=== PATIENT | female | born 1985 | race Caucasian/White ===

== ENCOUNTER → 2020-07-02 16:47 | Outpatient (BNVA) | payer MEDICAID, SELFPAY | PROVIDERS: Family Provider Nurse Practitioner Family; Visit Provider Obstetrics & Gynecology | DX: N39.41 Urge incontinence (principal); Z12.4 Encounter for screening for malignant neoplasm of cervix | CPT/HCPCS: 81000; 88175 ==

== ENCOUNTER → 2020-07-16 11:49 | Outpatient (BNVA) | payer MEDICAID, SELFPAY | PROVIDERS: Family Provider Nurse Practitioner Family; Visit Provider Obstetrics & Gynecology | DX: N39.41 Urge incontinence (principal) | CPT/HCPCS: 81000 ==

== ENCOUNTER → 2020-08-02 14:10 | Outpatient (BNVA) | payer MEDICAID, SELFPAY | PROVIDERS: Family Provider Nurse Practitioner Family; Visit Provider Obstetrics & Gynecology | DX: Z01.812 Encounter for preprocedural laboratory examination (principal); R87.611 Atypical squamous cells cannot exclude high grade squamous intraepithelial lesion on cytologic smear of cervix (ASC-H); N39.3 Stress incontinence (female) (male) | CPT/HCPCS: 81025; 88305 ==

== ENCOUNTER → 2020-08-30 10:01 | Outpatient (BNVA) | payer OTHER, MEDICAID, SELFPAY | PROVIDERS: PCP Nurse Practitioner Family; Visit Provider Obstetrics & Gynecology | DX: Z01.818 Encounter for other preprocedural examination (principal) | CPT/HCPCS: 87635 ==

== ENCOUNTER 2020-09-05 08:38 | Observation (INO) | payer MEDICAID, SELFPAY ==
[2020-09-03 09:51] VITALS: BMI 36.8
[2020-09-03 10:13] LABS: Basophils # 0.1 10^3/uL (0.0-0.1); Basophils % 0.6 %; Eosinophils # 0.4 10^3/uL (0.0-0.8); Eosinophils % 4.6 %; Hematocrit 41.4 % (37.0-47.0); Hemoglobin 13.8 g/dL (11.5-15.3); Mean Corpuscular HGB Conc 33.3 g/dL (30.0-36.0); Mean Corpuscular Hemoglobin 28.6 pg (28.0-34.0); Mean Corpuscular Volume 85.9 fL (81-99); Mean Platelet Volume 8.8 fL (7.4-10.4); Monocytes # 0.5 10^3/uL (0.2-0.9); Monocytes % 5.9 %; Neutrophils # 5.38 10^3/uL (1.8-7.7); Neutrophils % 64.5 %; Nucleated Red Blood Cells % 0 %; Platelet Count 292 10^3/cmm (130-400); Red Blood Count 4.82 10^6/uL (4.1-5.3); Red Cell Distribution Width 12.9 % (12.1-15.1); White Blood Count 8.3 10^3/uL (4.0-10.0)
[2020-09-03 10:15] LABS: OR HCG Qualitative Urine Negative (Negative)
--- NOTE | 2020-09-03 10:25 | P.ANESASSM_ITS ---
Pre-Anesthetic Assessment Pre-Anesthetic Assessment: Height/Weight: Height 1.7 m Weight 106.594 kg Preop Diagnosis: Urinary stress incotinence Proposed Procedure: Operation Date: 09/05/20 09:15 Proposed Procedures p Single incision urethral sling 76983 N39.3(Not Applicable) - Ronny Brown MD Was Beta Cami taken within 24 hours: N/A Social: Social History: Tobacco and No alcohol Comment: Smokes sky Exam: Pre-Anes Outpt Exam: alert, oriented x 3, clear to auscultation bilaterally and regular rate & rhythm Airway: Submandibular: WNL Cervical ROM: WNL MP: 2 Dentition: Full Pulmonary: Pulmonary: None reported CV/HEM: CV/HEM: None reported : Comments: Stress incont Hepatic: Hepatic: None reported GI: GI: None reported Metabolic: Metabolic: Morbid obesity Musc/skel: Musc/skel: None reported Neuropsych: Neuropsych: Anxiety and Depression Anesthetic Plan: ASA status: 3 Anesthesia: General Risk of > 500 ml blood loss (7ml/kg in children): No PFSH Anesthesia PFSH: Medical History ASCUS with positive high risk HPV cervical Well woman exam with routine gynecological exam Surgical History S/P cholecystectomy 2018, hernia repair done at the same time of gallbladder removal Family History Grandmother Thyroid condition paternal Denies family history of Colon cancer Ovarian cancer Diabetes Clotting disorder Heart disease Hyperlipidemia Breast cancer Anesthesia complication Bleeding disorder Hypertension Uterine cancer Stroke Social History Smoking and tobacco status: former smoker Quit status (tobacco): has quit using tobacco Year quit tobacco: 07/03/2018 Alcohol intake: current Alcohol intake frequency: holidays/special occasions only Alcohol type: beer Female Reproductive History: Date of last menstrual period: 08/24/20 Data Anesthesia CBC & Chem 7: 09/03/20 09:57 09/03/20 09:57 Other Labs: Laboratory Results - last 48 hr 09/03/20 09/03/20 09:57 10:10 WBC 8.3 RBC 4.82 Hgb 13.8 Hct 41.4 MCV 85.9 MCH 28.6 MCHC 33.3 RDW 12.9 Plt Count 292 MPV 8.8 Neut % (Auto) 64.5 Lymph % (Auto) 24.0 [place] % (Auto) 5.9 Eos % (Auto) 4.6 Baso % (Auto) 0.6 Neut # (Auto) 5.38 Lymph # (Auto) 2.0 [place] # (Auto) 0.5 Eos # (Auto) 0.4 Baso # (Auto) 0.1 Nucleated RBC % (auto) 0 Nucleated RBCs # 0.0 Urine HCG, Qual Negative Cardiac Studies: No Data to Display
[2020-09-03 10:35] LABS: Alanine Aminotransferase 16 U/L (0-33); Albumin Level 4.7 g/dL (3.5-5.2); Alkaline Phosphatase 88 IU/L (35-105); Anion Gap 14.2 (5-19); Aspartate Amino Transferase 13 U/L (0-32); Blood Urea Nitrogen 12 mg/dL (6-20); Calcium 9.5 mg/dL (8.5-10.5); Carbon Dioxide 26 mmol/L (22-29); Chloride 100 mmol/L (98-107); Globulin 2.7 g/dL (1.3-4.6); Glomerular Filtration Rate 115.1 mL/min (90-130); Glucose 101 mg/dL (65-115); Osmolality Calculated 282 mOsm/kg (285-295); Potassium 4.2 mmol/L (3.5-5.1); Sodium 136 mmol/L (136-145); Total Bilirubin 0.2 mg/dL (0.15-1.2); Total Protein 7.4 g/dL (6.6-8.7)
[2020-09-05] VITALS (18 sets, daily range): BP systolic 108–143; BP diastolic 64–93; PULSE 62–88; RESP 15–21; TEMP 36.4–37.1; O2SAT 92–100
--- NOTE | 2020-09-05 06:23 | P.ANESUD_ITS ---
Pre-Anesthetic Update Pre-Anesthetic Assessment: Date of Surgery/Procedure: 09/05/20 Preop Roma gnosis: Urinary stress incotinence Proposed Procedure: Operation Date: 09/05/20 07:00 Proposed Procedures p Sling(Not Applicable) - Ronny Brown MD Any changes to Pre-Anesthetic Assessment?: No Changes from Pre-Anesthetic Assessment: NPO MN Last Intake: Intake Last Liquid Date 09/04/20 Last Liquid Time 23:00 Last Solid Date 09/04/20 Last Solid Time 23:00 Labs Last 48hrs: Laboratory Results - last 48 hr 09/03/20 09/03/20 09/03/20 09:57 09:57 09:57 WBC 8.3 RBC 4.82 Hgb 13.8 Hct 41.4 MCV 85.9 MCH 28.6 MCHC 33.3 RDW 12.9 Plt Count 292 MPV 8.8 Neut % (Auto) 64.5 Lymph % (Auto) 24.0 [place] % (Auto) 5.9 Eos % (Auto) 4.6 Baso % (Auto) 0.6 Neut # (Auto) 5.38 Lymph # (Auto) 2.0 [place] # (Auto) 0.5 Eos # (Auto) 0.4 Baso # (Auto) 0.1 Nucleated RBC % (a uto) 0 Nucleated RBCs # 0.0 Sodium 136 Potassium 4.2 Chloride 100 Carbon Dioxide 26 Anion Gap 14.2 BUN 12 Creatinine 0.6 GFR Calculation 115.1 Glucose 101 Calculated Osmolal ity 282 L Calcium 9.5 Total Bilirubin 0.2 AST 13 ALT 16 Alkaline Phosphata se 88 Total Protein 7.4 Albumin 4.7 Globulin 2.7 Urine HCG, Qual Blood Type O Positive Rho(D) Type Positive Antibody Screen Negative 09/03/20 10:10 WBC RBC Hgb Hct MCV MCH MCHC RDW Plt Count MPV Neut % (Auto) Lymph % (Auto) [place] % (Auto) Eos % (Auto) Baso % (Auto) Neut # (Auto) Lymph # (Auto) [place] # (Auto) Eos # (Auto) Baso # (Auto) Nucleated RBC % (a uto) Nucleated RBCs # Sodium Potassium Chloride Carbon Dioxide Anion Gap BUN Creatinine GFR Calculation Glucose Calculated Osmolal ity Calcium Total Bilirubin AST ALT Alkaline Phosphata se Total Protein Albumin Globulin Urine HCG, Qual Negative Blood Type Rho(D) Type Antibody Screen Vitals: Temperature 97.9 F 09/05/20 06:04 Temperature Source Temporal Artery S can 09/05/20 06:04 Pulse Rate 76 09/05/20 06:04 Respiratory Rate 16 09/05/20 06:04 Blood Pressure 131/76 09/05/20 06:04 Blood Pressure Rissa n 94 09/05/20 06:04 Pulse Oximetry 97 09/05/20 06:04 Oxygen Delivery Me thod 09/05/20 06:04 Exam: Pre-Anes Outpt Exam: alert, oriented x 3, clear to auscultation bilaterally and regular rate & rhythm Cardiac Studies: No Data to Display
[2020-09-05] MEDS: sodium chloride 0.9% 1,000 ML 30 ML IV (06:28)
--- NOTE | 2020-09-05 06:39 | W.PM.OPSUD ---
Surgery/Procedure H&P Update DATE OF PROCEDURE: September 05, 2020 DATE H&P PERFORMED: 09/03/20 H&P UPDATE INFORMATION: I have reviewed H&P completed within last 30 days, I have examined patient prior to procedure and No changes to prior documentation PREOP DIAGNOSIS: Urinary stress incotinence PLANNED PROCEDURE: Operation Date: 09/05/20 07:00 Proposed Procedures p Sling(Not Applicable) - Ronny Brown MD
[2020-09-05] MEDS: vancomycin 1,000 MG in sodium chloride 0.9% 250 ML 250 MG IV (06:46)
--- NOTE | 2020-09-05 07:50 | PM.OP ---
Operative Report Date of procedure: September 05, 2020 Pre-op Diagnosis: Urinary stress incotinence Post-op diagnosis: same Post-op Findings: Urethral hypermobility Procedure Done: Single incision mid urethral sling Implants: Coloplast sling Pathology: none sent Surgeon: Ronny Brown MD Anesthesia: General Estimated blood loss (mL): 10 IV fluids (mL): 500 Urine output (mL): 100 Complications: None Findings: Urethral hypermobility Condition: stable Brief History: 35-year-old female with urinary stress incontinence Procedure: After obtaining informed consent, the patient was taken to the operating room and placed in the supine position, given general anesthesia, and prepped and draped in sterile fashion. The abdomen, vulva and vagina were prepped and draped in a sterile manner. A time out procedure was performed. The anterior vaginal mucosa beneath the midurethra was infiltrated with 0.5% Marcaine with epinephrine. A vertical midline incision was made beneath the midurethra, nearly 1.5 cm length. Careful submucosal dissection was performed bilaterally up to the interior portion of the inferior pubic ramus. The insertion of adductor longus tendon on the patient?s pubic ramus was identified as reference land cherelle. Palpated the notch along the internal edge of ischiopubic ramus where the adductor longus tendon and the inferior pubic ramus meet. The needle of the SIS inserted aiming at the location of this notch. One of the integrated self-fixating tips place onto the needle by sliding it over the end of the needle. The needle/sling assembly was inserted toward the location of identified reference notch making sure that the flat of the handle is perpendicular to the desired path. The needle was tracked along the posterior surface of the ischiopubic ramus until the midline cherelle on the mesh is approximately at the midline position under the urethra. The needle was removed and the same was repeated on the contralateral side until the appropriate sling tension under the urethra was achieved ensuring that the mesh lays flat. The needle was removed and vaginal incision was closed in a running interlocking fashion with 2-0 Vicryl. Then the Guillermo catheter was removed and cystoscope was inserted. The bladder was filled with sterile water. Complete evaluation of the bladder mucosa was performed noting no lacerations, dimpling, tears, bleeding of the mucosa or muscular layers. Both ureteral orifices were identified. Prompt excretion of urine from both ureteral orifices was noted. Cystoscope was withdrawn. Excellent hemostasis was obtained. Sponge, lap, needle, and instrument counts were correct times three. The patient was taken to the recovery room, awake and in stable condition.
--- NOTE | 2020-09-05 08:14 | SUR.PHASEI ---
pt awake alert , deines pain and nausea, taking ice chips without difficulty, vss abd soft. waiting for bed assignment.
[2020-09-05] MEDS: morphine 4 mg/mL SDV 1 mL 2 MG IVP (08:22)
--- NOTE | 2020-09-05 08:29 | SUR.PHASEI ---
0822 PT COMPLAINS OF URGENCY AND PAIN OF 5 TO LOWER ABD PT REMINDED OF LOPEZ CATH , SEE PAIN MED GIVEN PER PT REQUEST.
--- NOTE | 2020-09-05 08:40 | ANE.PACU2 ---
Inpatient post-anesthesia follow up: Airway intact: Yes Vital signs: Temperature 98.7 F Pulse Rate 71 Respiratory Rate 20 Blood Pressure 116/71 Pulse Oximetry 93 Oxygen Delivery Me thod Room Air Oxygen Flow Rate 8 Fraction of Inspir ed Oxygen Hydration adequate: Yes Nausea and vomiting: No Pain level: 1 Mental status: Baseline
[2020-09-05] MEDS: ketorolac 30 mg/mL INJ IVP ×2 (09:45→16:18)
[2020-09-05] MEDS: dextrose 5%-lactated ringers 1,000 ML 125 ML IV (09:45)
[2020-09-05] MEDS: docusate sodium 100 mg Capsule PO ×2 (09:45→19:25)
[2020-09-05] MEDS: fluticasone nasal spray 16gm Btl 2 SPRAY INTRANASAL ×2 (10:44→19:26)
[2020-09-05] MEDS: HYDROcodone-acetaminophen 5-325 mg Tablet PO ×2 (10:51→21:52)
[2020-09-05] MEDS: ondansetron 2 mg/ML SDV 2 mL 4 MG IVP (16:18)
[2020-09-05] MEDS: ibuprofen 800 mg tablet PO (20:06)
[2020-09-05] MEDS: TRAZODONE 50 MG TAB 1 EACH PO (20:07)
[2020-09-05] MEDS: OLANZAPINE 5 MG 1 EACH PO (20:07)
[2020-09-05] MEDS: acetaminophen 325 mg Tablet 650 MG PO (23:08)
[2020-09-06 05:15] VITALS: BP 108/71; PULSE 70; RESP 15; TEMP 36.5; O2SAT 97
[2020-09-06 05:31] LABS: Hematocrit 37.2 % (37.0-47.0); Mean Corpuscular HGB Conc 32.3 g/dL (30.0-36.0); Mean Corpuscular Hemoglobin 28.5 pg (28.0-34.0); Mean Corpuscular Volume 88.4 fL (81-99); Mean Platelet Volume 8.6 fL (7.4-10.4); Platelet Count 273 10^3/cmm (130-400); Red Blood Count 4.21 10^6/uL (4.1-5.3); Red Cell Distribution Width 12.8 % (12.1-15.1)
[2020-09-06] MEDS: fluticasone nasal spray 16gm Btl 2 SPRAY INTRANASAL (08:40)
[2020-09-06] MEDS: ibuprofen 800 mg tablet PO (08:40)
[2020-09-06] MEDS: docusate sodium 100 mg Capsule PO (08:40)
--- NOTE | 2020-09-06 09:16 | PM.OBGYDC ---
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 Try conservative management without resolution. Admitted for single incision mid urethral sling. The procedure was performed without complications.. Overnight observation uneventful. PVR within normal limits. She is afebrile and hemodynamically stable. Tolerating diet well. Ambulating without difficulty. Physical Exam Narrative: EXAM NARRATIVE: GA: Alert and oriented ?3. HEENT: WNL. Heart: Regular rate and rhythm. Lungs: Clear to auscultation bilaterally. Abdomen: Bowel sounds present, nontender CLINICAL EDUCATOR: No bleeding. PVR: 15ml Extremities: No edema, no cyanosis, no calves pain. Urinary Catheter Management^: Giullermo: Cath Placed During This Visit: yes Urinary Catheter Date of Insertion: 09/05/20 Urinary Catheter Time of Insertion: 07:35 Discharge Data Data Completed and Pending: Labs from last 24 hours 09/06/20 05:15 WBC 15.0 H RBC 4.21 Hgb 12.0 Hct 37.2 MCV 88.4 MCH 28.5 MCHC 32.3 RDW 12.8 Plt Count 273 MPV 8.6 Vitals: Last Vital Signs Temp 97.7 F 09/06/20 05:15 Pulse 70 09/06/20 05:15 Resp 15 09/06/20 05:15 BP 108/71 09/06/20 05:15 Pulse Ox 97 09/06/20 05:15 Discharge Plan Discharge Patient Disposition: Home Condition: Stable Prescriptions: New ibuprofen 800 mg tablet 800 mg PO TID PRN (Reason: pain) Qty: 60 RF: 0 Continued ketoconazole 1 % shampoo 1 applic topical Q3D RF: 0 trazodone 50 mg tablet 50 mg PO DAILY RF: 0 olanzapine 5 mg tablet 5 mg PO DAILY RF: 0 fluticasone propionate [Flonase Allergy Relief] 50 mcg/actuation spray,suspension 2 spray intranasal BID RF: 0 Mirena 20 mcg/24 hours (6 yrs) 52 mg intrauterine device 1 device intrauterine ONCE RF: 0 Discharge Orders: Discharge Order (Routine); Ordered 09/06/20 Ordered By: Ronny Brown Referrals: Ronny Brown MD [Physician] - 2 weeks Discharge Diet: Regular Discharge Activity: Increase activity as tolerated Patient Instructions: Bladder Sling Procedures (DC) Activity Restrictions/Additional Instructions: 1. Please call [facility] on next working day to make your post-operative appointment in 2 weeks. 2. Please stay home until you come back to the clinic on first post-operative check up. 3. Please follow instructions on your medications CAREFULLY. 4. If you have abdominal incision, do not cover it unless dressing is necessary because of drainage. OK to shower, but avoid bath. Leave steri-strips until they fall off. If they are still on one week after surgery, you may remove them. 5. If you had vaginal surgery, your doctor may instruct you to take SITZ bath. 6. Yellow, blood tinged odorous vaginal discharge is usually normal after hysterectomy or vaginal surgeries. 7. No sexual intercourse, tampons, or douches until you are completely released from the post-operative care. 8. Avoid constipation by eating right and maybe using some Metamucil or Milk of Magnesia. 9. All prescription refills are given during the working hours. Please do no wait till it runs out. Call the clinic at [phone] before your medication runs out. The clinic will get in touch with your doctor to prescribe medications if necessary. 10. Please remain within 40 mile radius from our hospital because emergencies do happen now and then during the post-operative period. 11. If you have stairs at home, take one step at a time slowly and minimize the number of trips. It helps to stay in one floor for the next few days. No lifting except what you can lift by one hand until you are released from the post-operative care. 12. Driving is discouraged until you are well healed. It may be 3-4 weeks before you feel strong enough to drive. You should be able to turn and look through the rear window without pain and you should be able to push the brake pedal very hard without pain before you drive. No fast rules, but SAFETY should be your primary concern. DO NOT drive if you are on sedating medications such as narcotics. 13. Call the clinic (during working hours) to make urgent appointment or go to the Emergency room, if any of the following occurs: i. Vaginal bleeding becomes heavy, more than a period. ii. Incision becomes red and sore, or drains pus. iii. Your temperature is over 100.4 or you have chill. iv. IV site becomes red and swollen (a little ``knot?? is usually OK) v. Persistent nausea and vomiting vi. Persistent constipation or diarrhea vii. Rash or allergic reaction to medications. 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
[2020-09-06 10:14] VITALS: BP 106/71; PULSE 100; RESP 16; TEMP 36.6; O2SAT 98
--- NOTE | 2020-09-06 10:15 | PC.NURSE ---
Home medications returned to patient prior to discharge. Patient confirms it was two bottles of medications and her flonase.
== END 2020-09-06 10:13 | disposition home or self-care (01) ==
LOC: OBGYN 08:41
PROVIDERS: Anesthesiology; Admitting Provider Obstetrics & Gynecology; PCP Nurse Practitioner Family; Visit Provider Obstetrics & Gynecology
PROC: (CPT 57288; principal; 2020-09-05 07:00)
PROC: 0TJB8ZZ Inspection of Bladder, Via Natural or Artificial Opening Endoscopic (ICD-10-PCS; CPT 52000; 2020-09-05 07:00)
DX: N39.3 Stress incontinence (female) (male) (principal); R87.611 Atypical squamous cells cannot exclude high grade squamous intraepithelial lesion on cytologic smear of cervix (ASC-H); N36.41 Hypermobility of urethra; E66.01 Morbid (severe) obesity due to excess calories; Z68.36 Body mass index [BMI] 36.0-36.9, adult; Z87.891 Personal history of nicotine dependence
CPT/HCPCS: 57288; 12345; 36415; 51798; 80053; 81025; 84703; 85025; 85027; 86850; 86900; 96365; C1713; G0378; J1100; J1200; J1885; J2250; J2270; J2405; J3010; J3370; J3490; J7030; J7050

== ENCOUNTER → 2022-03-31 10:08 | Outpatient (BNVA) | payer MEDICAID, SELFPAY | PROVIDERS: PCP Nurse Practitioner Family; Visit Provider Obstetrics & Gynecology | DX: Z01.812 Encounter for preprocedural laboratory examination (principal); Z30.09 Encounter for other general counseling and advice on contraception | CPT/HCPCS: 80053; 85025; 86850; 86900 ==

== ENCOUNTER 2022-04-02 08:17 | Day surgery (SDC) | payer MEDICAID, SELFPAY ==
[2022-03-31 09:07] VITALS: BMI 35.2
--- NOTE | 2022-03-31 09:20 | P.ANESASSM_ITS ---
Pre-Anesthetic Assessment Height/Weight: Height 1.7 m Weight 102.058 kg Preop Diagnosis: Urinary stress incotinence Operation Date: 04/02/22 10:45 Proposed Procedures p Laparoscopic bilateral salpingectomy 06564,Z30.2(Bilateral) - Ronny Brown MD Familial anesthetic complications: None Social No alcohol and No tobacco vape THC Exam alert, oriented x 3, clear to auscultation bilaterally and regular rate & rhythm Airway Mallampati: Class II Dentition: chipped Pulmonary None reported CV/HEM None reported None reported Hepatic None reported GI None reported Metabolic None reported Musc/skel None reported Neuropsych Transient Ischemic Attack (14 years ago) Anesthetic Plan ASA status: 2 Anesthesia: General Risk of > 500 ml blood loss (7ml/kg in children): No Medications/Allergies Home Medications Medication Instructions Recorded Confirmed Last Taken Type fluticasone propionate 50 2 spray intranasal BID 07/02/20 03/31/22 09/04/20 History mcg/actuation nasal spray,suspension (Flonase Allergy Relief) olanzapine 5 mg tablet 5 mg PO DAILY 07/02/20 03/31/22 09/04/20 History trazodone 50 mg tablet 50 mg PO DAILY 07/02/20 03/31/22 09/04/20 History ketoconazole 1 % shampoo 1 applic topical Q3D 08/09/20 03/31/22 Unknown History levonorgestrel 20 mcg/24 hours (7 1 device intrauterine ONCE 09/03/20 03/31/22 Unknown History yrs) 52 mg intrauterine device (Mirena) ibuprofen 800 mg tablet 800 mg PO TID PRN pain #60 tabs 09/06/20 03/31/22 Unknown Rx fluoxetine 10 mg capsule 20 mg PO DAILY 03/03/22 03/31/22 Unknown History omeprazole PO .daily 03/03/22 03/03/22 Unknown History Allergies Allergy/AdvReac Type Severity Reaction Status Date / Time Penicillins Allergy Severe hives Verified 03/31/22 09:02 [facility] Anesthesia Medical History ASCUS with positive high risk HPV cervical Well woman exam with routine gynecological exam Surgical History S/P cholecystectomy 2018, hernia repair done at the same time of gallbladder removal Family History Grandmother Thyroid condition paternal Denies family history of Colon cancer Ovarian cancer Diabetes Clotting disorder Heart disease Hyperlipidemia Breast cancer Anesthesia complication Bleeding disorder Hypertension Uterine cancer Stroke Female Reproductive History Date of last menstrual period: 08/24/20 Data Anesthesia Cardiac Studies: No Data to Display
[2022-04-02] VITALS (16 sets, daily range): BP systolic 120–165; BP diastolic 77–108; PULSE 68–89; RESP 14–20; TEMP 36.2–36.8; O2SAT 94–100
[2022-04-02] MEDS: sodium chloride 0.9% 500 ML IV (09:11)
[2022-04-02 09:43] LABS: OR HCG Qualitative Urine Negative (Negative)
[2022-04-02] MEDS: sodium chloride 0.9% 1,000 ML 30 ML IV (09:55)
[2022-04-02 10:17] LABS: Basophils % 0.5 %; Eosinophils # 0.4 10^3/uL (0.0-0.8); Eosinophils % 5.2 %; Hematocrit 39.6 % (37.0-47.0); Hemoglobin 13.3 g/dL (11.5-15.3); Lymphocytes # 1.9 10^3/uL (0.8-4.8); Mean Corpuscular HGB Conc 33.6 g/dL (30.0-36.0); Mean Corpuscular Hemoglobin 28.5 pg (28.0-34.0); Mean Corpuscular Volume 84.8 fl (81-99); Monocytes # 0.5 10^3/uL (0.2-0.9); Monocytes % 6.7 %; Neutrophils # 5.03 10^3/uL (1.8-7.7); Neutrophils % 63.2 %; Nucleated Red Blood Cells % 0 %; Platelet Count 260 10^3/cmm (130-400); Red Blood Count 4.67 10^6/uL (4.1-5.3); Red Cell Distribution Width 13.5 % (12.1-15.1)
--- NOTE | 2022-04-02 10:36 | W.PM.OPSUD ---
Surgery/Procedure H&P Update DATE OF PROCEDURE: April 02, 2022 DATE H&P PERFORMED: 03/31/22 H&P UPDATE INFORMATION: I have reviewed H&P completed within last 30 days, I have examined patient prior to procedure and No changes to prior documentation PREOP DIAGNOSIS: Desires permanent sterilization PLANNED PROCEDURE: Operation Date: 04/02/22 10:25 Proposed Procedures p Laparoscopic bilateral salpingectomy 13805,Z30.2(Bilateral) - Ronny Brown MD
--- NOTE | 2022-04-02 10:40 | P.ANESUD_ITS ---
Pre-Anesthetic Update Pre-Anesthetic Assessment: Date of Surgery/Procedure: 04/02/22 Preop Roma gnosis: Desires permanent sterilization Proposed Procedure: Operation Date: 04/02/22 10:25 Proposed Procedures p Laparoscopic bilateral salpingectomy 21394,Z30.2(Bilateral) - Ronny Brown MD Any changes to Pre-Anesthetic Assessment?: No Last Intake: Intake Last Liquid Date 04/01/22 Last Liquid Time 21:00 Last Solid Date 04/01/22 Last Solid Time 18:45 Labs Last 48hrs: Short CBC 04/02/22 Range/Units 09:05 WBC 8.0 (4.0-10.0) 10^3/ uL Hgb 13.3 (11.5-15.3) g/dL Hct 39.6 (37.0-47.0) % MCV 84.8 (81-99) fl Plt Count 260 (130-400) 10^3/c mm Neut % (Auto) 63.2 % Neut # (Auto) 5.03 (1.8-7.7) 10^3/u L Vitals: Temperature 98.2 F 04/02/22 09:07 Temperature Source Temporal Artery S can 04/02/22 09:07 Pulse Rate 73 04/02/22 09:07 Respiratory Rate 18 04/02/22 09:07 Blood Pressure 137/84 04/02/22 09:07 Blood Pressure Rissa n 101 04/02/22 09:07 Pulse Oximetry 97 04/02/22 09:07 Oxygen Delivery Me thod 04/02/22 09:07 Exam: Pre-Anes Outpt Exam: alert, oriented x 3, clear to auscultation bilaterally and regular rate & rhythm Cardiac Studies: No Data to Display
[2022-04-02] MEDS: vancomycin 1,000 MG in sodium chloride 0.9% 250 ML 250 MG IV (10:55)
--- NOTE | 2022-04-02 11:37 | PM.OP ---
Operative Report Date of procedure: April 02, 2022 Pre-op diagnosis: Preop Diagnosis Desires permanent sterilization Post-op diagnosis: same Post-op diagnosis: Normal left and right ovaries, fallopian tubes and uterus Post-op findings: Same as above Procedure done: Laparoscopic bilateral salpingectomy Specimens removed/disposition: Left and right fallopian tube Surgeon: Ronny Brown MD Estimated blood loss (mL): 5 IV fluids (mL): 500 Urine output (mL): 200 Disposition: PACU Procedure: After informed consent, the patient was taken to the operating room where general anesthesia was administered. She was placed in the dorsal lithotomy position and prepped and draped in sterile fashion. Pre-Procedure Time-Out verifying the correct patient identity, correct procedure verified with consent, correct site and side, correct patient position, availability of correct implants and any special equipment or requirements was performed and acknowledge by the OR team. The patient was examined under anesthesia and found to have a normal uterus with normal adnexa. A weighted speculum was placed in the vagina, and the anterior lip of cervix was grasped with the single toothed tenaculum. A uterine manipulator was advanced into the endocervical canal and uterus. The tenaculum was removed after uterine manipulator was secured. The speculum was removed from the vagina. An intraumbilical incision was made with a scalpel. While tenting up on the abdomen, a Verres needle was admitted into the intra-abdominal cavity. A saline drop test was performed and noted to be within normal limits. Pneumoperitoneum was attained with 4 liters of carbon dioxide. The Verres needle was removed. A 5 mm Opitc view trocar and sleeve were admitted into the abdomen and laparoscopic confirmation of location was achieved. A second incision was made 3 cm above the symphysis pubis, and a 5 mm trocar sleeves were admitted into the abdomen under direct laparoscopic visualization without complication. A survey revealed normal abdominal anatomy with the exception of string adhesion to the right lower anterior abdominal wall. A 5 mm blunt probe was advanced through the second trocar sleeve, and light manipulation of ovaries and uterus to assess the posterior aspects was performed. The pelvic survey shows normal uterus, left and right adnexa. The left ovary was noted with a follicular cyst. The string adhesion was fulgurated and transected with good hemostasis with the voyant. The patient was placed into Trendelenburg position. The fallopian tubes were inspected bilaterally and the fimbriated ends of the fallopian tubes were visualized bilaterally. Attention was then directed to the right side. The fallopian tube and mesosalpinx were grasped and the underlying mesosalpinx was cauterized and cut using the voyant device. Serial cauterization and cutting was used to separate the fallopian tube from the underlying mesosalpinx until it could be amputated cutting it approximated 2 cm from the cornua. Attention was then turned to the contralateral fallopian tube, which was removed in similar fashion. Both specimens were removed through the trocar and sent to pathology. The instruments were removed. The suprapubic trocar port was removed under direct visualization insuring good hemostasis. The carbon dioxide was allowed to escape from the abdomen. The intraumbilical trocar sleeve was withdrawn under visualization with laparoscope in the sleeve to insure hemostasis. The skin incisions were closed with 3-O Monocryl subcuticular stich and Dermabond. The instruments were removed from the vagina, and excellent hemostasis was noted. The patient tolerated the procedure well, and sponge, lap and needle count were correct times two. The patient was taken to the recovery room in good condition.
[2022-04-02] MEDS: labetalol 5 mg/mL SDV 20mL IVP (12:28)
[2022-04-02] MEDS: ondansetron 2 mg/ML SDV 2 mL 4 MG IVP ×2 (12:30→12:37)
--- NOTE | 2022-04-02 13:50 | SUR.PHASEII ---
13:35 wolfe catheter ballon deflated and wolfe dc'ed. pt tolerated procedure well.
--- NOTE | 2022-04-02 18:06 | ANE.PACU2 ---
Inpatient post-anesthesia follow up: Airway intact: Yes Vital signs: Temperature 97.8 F Pulse Rate 76 Respiratory Rate 14 Blood Pressure 131/87 Pulse Oximetry 96 Oxygen Delivery Me thod Room Air Oxygen Flow Rate 6 Fraction of Inspir ed Oxygen Hydration adequate: Yes Nausea and vomiting: No Pain level: 1 Mental status: Baseline
== END 2022-04-02 13:45 | disposition home or self-care (01) ==
PROVIDERS: Anesthesiology; PCP Nurse Practitioner Family; Visit Provider Obstetrics & Gynecology
PROC: (CPT 58661; principal; 2022-04-02 10:15)
DX: Z30.2 Encounter for sterilization (principal); Z86.73 Personal history of transient ischemic attack (TIA), and cerebral infarction without residual deficits; Z87.891 Personal history of nicotine dependence
CPT/HCPCS: 58661; 81025; 84703; 85025; 88302; J1100; J1200; J2250; J2405; J2704; J3010; J3370; J3490; J7030; J7040; J7050

== ENCOUNTER → 2022-05-13 14:35 | Outpatient (BNVA) | payer MEDICAID, SELFPAY | PROVIDERS: PCP Nurse Practitioner Family; Visit Provider Obstetrics & Gynecology | DX: R87.611 Atypical squamous cells cannot exclude high grade squamous intraepithelial lesion on cytologic smear of cervix (ASC-H) (principal); Z12.4 Encounter for screening for malignant neoplasm of cervix; Z48.816 Encounter for surgical aftercare following surgery on the genitourinary system | CPT/HCPCS: 87624 ==

== ENCOUNTER → 2022-05-20 14:55 | Outpatient (BNVA) | payer MEDICAID, SELFPAY | PROVIDERS: PCP Nurse Practitioner Family; Visit Provider Obstetrics & Gynecology | DX: Z30.431 Encounter for routine checking of intrauterine contraceptive device (principal) | CPT/HCPCS: 76830 ==

== ENCOUNTER → 2022-06-10 13:07 | Outpatient (BNVA) | payer MEDICAID, SELFPAY | PROVIDERS: PCP Nurse Practitioner Family; Visit Provider Obstetrics & Gynecology | DX: T83.32XA Displacement of intrauterine contraceptive device, initial encounter (principal); Z30.432 Encounter for removal of intrauterine contraceptive device | CPT/HCPCS: 81025 ==

== ENCOUNTER 2023-04-21 15:10 | Observation (INO) | payer MEDICAID, SELFPAY ==
[2023-04-17 10:35] LABS: Basophils # 0.1 10^3/uL (0.0-0.1); Basophils % 0.7 %; Eosinophils # 0.4 10^3/uL (0.0-0.8); Eosinophils % 4.6 %; Hematocrit 37.5 % (36-47); Lymphocytes # 1.9 10^3/uL (0.8-4.8); Lymphocytes % 23.9 %; Mean Corpuscular HGB Conc 33.9 g/dL (30-55); Mean Corpuscular Hemoglobin 29.3 pg (27-33); Mean Corpuscular Volume 86.6 fl (85-98); Mean Platelet Volume 8.4 fL (7.4-10.4); Monocytes # 0.5 10^3/uL (0.2-0.9); Monocytes % 6.2 %; Neutrophils # 5.23 10^3/uL (1.8-7.7); Neutrophils % 64.2 %; Nucleated Red Blood Cells % 0 %; Platelet Count 265 10^3/cmm (157-399); Red Blood Count 4.33 10^6/uL (3.85-5.65); Red Cell Distribution Width 13.2 % (12.1-15.1); White Blood Count 8.13 10^3/uL (3.29-11.43)
[2023-04-17 11:14] LABS: Alanine Aminotransferase 12 U/L (0-33); Alkaline Phosphatase 72 U/L (35-105); Anion Gap 13.3 (5-19); Aspartate Amino Transferase 12 U/L (0-32); Blood Urea Nitrogen 12 mg/dL (6-20); Calcium 9.2 mg/dL (8.5-10.5); Carbon Dioxide 27 mmol/L (22-29); Chloride 103 mmol/L (98-107); Globulin 2.3 g/dL (1.3-4.6); Glomerular Filtration Rate 113.8 mL/min (90-130); Glucose 94 mg/dL (65-115); Osmolality Calculated 288 mOsm/kg (285-295); Potassium 4.3 mmol/L (3.5-5.1); Sodium 139 mmol/L (136-145); Total Bilirubin 0.4 mg/dL (0.15-1.2); Total Protein 7.3 g/dL (6.6-8.7)
[2023-04-17 11:18] LABS: Add Urine Culture? Yes; Add Urine Microscopic? YES; Bacteria Urine 2+ /hpf; Bilirubin Urine Neg (Negative); Blood Urine 2+ (Negative); Glucose Urine UA Norm (Normal); Ketones Urine Negative (Negative); Leukocyte Esterase Urine Negative (Negative); Mucus Urine 2+ /hpf; Nitrate Urine Negative (Negative); Protein Urine Neg (Negative); RBC Urine 0-4 /hpf (0-2); Urine Appearance Hazy (CLEAR); Urine Color Yellow (Yellow); Urobilinogen Urine Norm (Negative); WBC Urine 0-4 /hpf (0-5); pH Urine 6 (5-7)
--- NOTE | 2023-04-17 16:12 | ANES.PREANE2 ---
Pre-Anesthetic Assessment Height/Weight: Height 1.7 m Weight 97.522 kg Operation Date: 04/21/23 09:10 Proposed Procedures p Anterior and posterior colporrhaphy 96737 ,N81.6,N81.10(Not Applicable) - Ronny Brown MD s Posterior Repair Posterior Colporrhaphy(Not Applicable) - Ronny Brown MD Familial anesthetic complications: none Was Beta Cami taken within 24 hours: N/A Was Clonidine taken within 24 hours: N/A Social Tobacco (sky) and No alcohol Exam alert, oriented x 3, clear to auscultation bilaterally and regular rate & rhythm Airway Submandibular: within normal limits Cervical ROM: within normal limits Mallampati: Class II Dentition: full GI Gastroesophageal Reflux Disease Neuropsych Anxiety and Depression Anesthetic Plan ASA status: 2 Anesthesia: General Medications/Allergies Home Medications Medication Instructions Recorded Confirmed Last Taken Type fluticasone propionate 50 2 spray intranasal BID 07/02/20 04/17/23 09/04/20 History mcg/actuation nasal spray,suspension (Flonase Allergy Relief) trazodone 50 mg tablet 50 mg PO DAILY 07/02/20 04/17/23 04/17/23 History fluoxetine 10 mg capsule 20 mg PO DAILY 03/03/22 04/17/23 04/17/23 History ibuprofen 800 mg tablet 800 mg PO TID PRN pain #90 tabs 06/11/22 04/17/23 Unknown Rx clobetasol 0.05 % topical cream 1 applic topical BID 2 weeks #60 01/26/23 04/17/23 Unknown Rx grams famotidine 20 mg tablet 20 mg PO DAILY 04/17/23 04/17/23 04/17/23 History Allergies Allergy/AdvReac Type Severity Reaction Status Date / Time Penicillins Allergy Severe hives Verified 04/17/23 10:04 [facility] Anesthesia Medical History ASCUS with positive high risk HPV cervical Surgical History H/O bilateral salpingectomy (~04/02/22) LAPAROSCOPIC-- Dr. Brown S/P cholecystectomy 2018, hernia repair done at the same time of gallbladder removal Family History Grandmother Thyroid condition paternal Denies family history of Colon cancer Ovarian cancer Diabetes Clotting disorder Heart disease Hyperlipidemia Breast cancer Anesthesia complication Bleeding disorder Hypertension Uterine cancer Stroke Social History Smoking and tobacco status: former smoker Substance/Drug Use: current Substance/Drug use frequency: daily Other substance/drug use details: states that she has a medical card Female Reproductive History Date of last menstrual period: 04/13/23 Data Anesthesia 04/17/23 10:19 04/17/23 10:19 Short CBC 04/17/23 Range/Units 10:19 WBC 8.13 (3.29-11.43) 10^3/uL Hgb 12.70 (11.27-16.99) g/dL Hct 37.5 (36-47) % MCV 86.6 (85-98) fl Plt Count 265 (157-399) 10^3/cmm Neut % (Auto) 64.2 % Neut # (Auto) 5.23 (1.8-7.7) 10^3/uL BMP 04/17/23 10:19 Sodium 139 Potassium 4.3 Chloride 103 Carbon Dioxide 27 BUN 12 Creatinine 0.6 Glucose 94 Calcium 9.2 Liver Function 04/17/23 Range/Units 10:19 Total Bilirubin 0.4 (0.15-1.2) mg/dL AST 12 (0-32) U/L ALT 12 (0-33) U/L Alkaline Phosphatase 72 (35-105) U/L Albumin 5.0 (3.5-5.2) g/dL Urine 04/17/23 Range/Units 10:19 Urine Color Yellow (Yellow) Urine Appearance Hazy A (CLEAR) Urine pH 6 (5-7) Ur Specific Hernandez 1.020 (1.005-1.030) Urine Protein Neg (Negative) Urine Glucose (UA) Norm (Normal) Urine Ketones Negative (Negative) Urine Nitrate Negative (Negative) Urine Bilirubin Neg (Negative) Ur Leukocyte Esterase Negative (Negative) Urine RBC 0-4 H (0-2) /hpf Urine WBC 0-4 H (0-5) /hpf Cardiac Studies: No Data to Display
[2023-04-21] VITALS (79 sets, daily range): BP systolic 107–131; BP diastolic 60–82; PULSE 51–94; RESP 15–18; TEMP 36.1–37; O2SAT 91–100; BMI 33.6
[2023-04-21] MEDS: scopolamine 1.5 Patch 1 PATCH TRANSDERMA (11:36)
[2023-04-21] MEDS: sodium chloride 0.9% 500 ML IV (11:37)
[2023-04-21] MEDS: sodium chloride 0.9% 1,000 ML 30 ML IV (11:37)
[2023-04-21 11:49] LABS: OR HCG Qualitative Urine Negative (Negative)
--- NOTE | 2023-04-21 12:16 | W.PM.OPSUD ---
Surgery/Procedure H&P Update DATE OF PROCEDURE: April 21, 2023 DATE H&P PERFORMED: 04/13/23 H&P UPDATE INFORMATION: I have reviewed H&P completed within last 30 days, I have examined patient prior to procedure and No changes to prior documentation PREOP DIAGNOSIS: Cystocele and rectocele PLANNED PROCEDURE: Operation Date: 04/21/23 12:20 Proposed Procedures p Anterior and posterior colporrhaphy 88030 ,N81.6,N81.10(Not Applicable) - Ronny Brown MD s Posterior Repair Posterior Colporrhaphy(Not Applicable) - Ronny Brown MD
[2023-04-21] MEDS: levofloxacin-dextrose 5 % 500 MG/100 ML PREMIX 100 MG IV ×2 (12:35→13:01)
[2023-04-21] MEDS: metroNIDAZOLE IV 500 MG/100 ML PREMIX 100 MG IV (12:40)
[2023-04-21] MEDS: lidocaine-epi 2% 20 mL INJ INJECTION (13:22)
[2023-04-21] MEDS: estrogens Conjugated Cream 30 gm 1 APPLIC VAGINAL (13:55)
--- NOTE | 2023-04-21 14:51 | PM.OP ---
Operative Report Date of procedure: April 21, 2023 Pre-op diagnosis: Preop Diagnosis Cystocele and rectocele Post-op diagnosis: Same Procedure done: Anterior colporrhaphy augmented with allograft. Posterior colporrhaphy Implants: Coloplast axidermis allograft Surgeon: Ronny Brown MD Estimated blood loss (mL): 300 IV fluids (mL): 1,300 Urine output (mL): 300 Complications: none Procedure: After obtaining informed consent, the patient was taken to the operating room and placed in the supine position, given general anesthesia, and prepped and draped in sterile fashion. The abdomen, vulva and vagina were prepped and draped in a sterile manner. A time out procedure was performed. The anterior vaginal mucosa beneath the midurethra was infiltrated with 0.5% Marcaine with epinephrine. A vertical midline incision was made beneath the midurethra, nearly 1.5 cm length. Careful submucosal dissection was performed bilaterally up to the interior portion of the inferior pubic ramus. The insertion of adductor longus tendon on the patient?s pubic ramus was identified as reference land cherelle. Palpated the notch along the internal edge of ischiopubic ramus where the adductor longus tendon and the inferior pubic ramus meet. The Altis single incision sling (SIS) was selected. Then the needle of the SIS inserted aiming at the location of this notch. One of the integrated self-fixating tips place onto the needle by sliding it over the end of the needle. The needle/sling assembly was inserted toward the location of identified reference notch making sure that the flat of the handle is perpendicular to the desired path. The needle was tracked along the posterior surface of the ischiopubic ramus until the midline cherelle on the mesh is approximately at the midline position under the urethra. The needle was removed and the same was repeated on the contralateral side until the appropriate sling tension under the urethra was achieved ensuring that the mesh lays flat. The needle was removed and vaginal incision was closed in a running interlocking fashion with 2-0 Vicryl. A posterior repair was performed next. An incision was made across the introitus. Metzenbaum scissors were used to tunnel beneath posterior vaginal mucosa until the apex of the rectocele bulge was reached. At this point, the rectum was from the posterior vaginal mucosa using sharp and blunt dissection, and the rectal bulge imbricated in the midline with interrupted sutures of 2-0 vicryl suture. Levator ani muscles on either side were approximated in the midline with interrupted 0 Vicryl sutures. Excess posterior vaginal mucosa was excised, and the vaginal episiotomy was repaired by approximating the posterior vaginal mucosa with a suture of Vicryl #0. The Guillermo catheter was noted with clear eileen-yellow urine. Excellent hemostasis was obtained. A vaginal pack is placed overnight as postoperative support for the vaginal tissues after graft placement and closure of vaginal incisions. Sponge, lap, needle, and instrument counts were correct times three. The patient was taken to the recovery room, awake and in stable condition.
[2023-04-21] MEDS: HYDROcodone-acetaminophen 5-325 mg Tablet PO (16:22)
[2023-04-21] MEDS: simethicone 80 mg Chew PO (20:37)
[2023-04-21] MEDS: dextrose 5%-lactated ringers 1,000 ML 125 ML IV (20:37)
[2023-04-21] MEDS: ketorolac 30 mg/mL INJ IVP (20:37)
[2023-04-21] MEDS: docusate sodium 100 mg Capsule PO (20:37)
[2023-04-22] MEDS: ketorolac 30 mg/mL INJ IVP (03:03)
[2023-04-22 03:05] VITALS: BP 124/70; PULSE 61
[2023-04-22 03:17] VITALS: TEMP 36.6
[2023-04-22] MEDS: HYDROcodone-acetaminophen 5-325 mg Tablet PO (05:04)
[2023-04-22 06:07] LABS: Hematocrit 33.1 % (36-47); Mean Corpuscular HGB Conc 33.5 g/dL (30-55); Mean Corpuscular Hemoglobin 28.8 pg (27-33); Mean Corpuscular Volume 85.8 fl (85-98); Mean Platelet Volume 8.8 fL (7.4-10.4); Platelet Count 285 10^3/cmm (157-399); Red Blood Count 3.86 10^6/uL (3.85-5.65); Red Cell Distribution Width 13.2 % (12.1-15.1); White Blood Count 13.79 10^3/uL (3.29-11.43)
--- NOTE | 2023-04-22 07:35 | PM.OBGYDC ---
Discharge Providers RENEWABLE ENERGY ENGINEER Date of Admission: 04/21/23 15:10 Date of Discharge: 04/22/23 Attending Provider at Admission: Ronny Brown MD Attending Provider at Discharge: Ronny Brown MD Primary RENEWABLE ENERGY ENGINEER: Ronny Brown MD Primary Care Provider: Jumana Aguero Reason for Visit Reason for Visit: 30650 N81.6 Hospital Course Hospital Course Mrs. Elise 37-year-old female with cystocele stage II and rectocele stage III was admitted for planned anterior colporrhaphy augmented with allograft and posterior colporrhaphy. The procedures were performed without complication. Overnight observation was uneventful. She is afebrile and hemodynamically stable postoperative day 1. Ambulating without difficulty. Tolerating diet well. She was counseled regarding pelvic rest for 6 weeks (no sex, no tampons, no vaginal douches). Return to the emergency room if any fever, increased bleeding or pain. Physical Exam Narrative: GA: Alert and oriented ?3. HEENT: WNL. Heart: Regular rate and rhythm. Lungs: Clear to auscultation bilaterally. Abdomen: Bowel sounds present, nontender WASTE WATER OR WATER PLANT OPERATOR: spotting bleeding. Extremities: No edema, no cyanosis, no calves pain. Urinary Catheter Management: Guillermo: Cath Placed During This Visit: yes, but has since been removed by the nurse Reason for Continuing Indwelling Catheter: Decision to DC Catheter Urinary Catheter Date of Insertion: 04/21/23 Urinary Catheter Time of Insertion: 12:33 Date Urinary Catheter Removed: 04/22/23 Time Urinary Catheter Discontinued: 05:45 History History History 5 Term 3 0 Miscarriages/Ectopic 2 Living Children 3 Discharge Data Studies Completed and Pending Laboratory Results WBC 13.79 10^3/uL (3.29-11.43) H 04/22/23 05:56 RBC 3.86 10^6/uL (3.85-5.65) 04/22/23 05:56 Hgb 11.10 g/dL (11.27-16.99) L 04/22/23 05:56 Hct 33.1 % (36-47) L 04/22/23 05:56 MCV 85.8 fl (85-98) 04/22/23 05:56 MCH 28.8 pg (27-33) 04/22/23 05:56 MCHC 33.5 g/dL (30-55) 04/22/23 05:56 RDW 13.2 % (12.1-15.1) 04/22/23 05:56 Plt Count 285 10^3/cmm (157-399) 04/22/23 05:56 MPV 8.8 fL (7.4-10.4) 04/22/23 05:56 Neut % (Auto) 64.2 % 04/17/23 10:19 Lymph % (Auto) 23.9 % 04/17/23 10:19 Carolina % (Auto) 6.2 % 04/17/23 10:19 Eos % (Auto) 4.6 % 04/17/23 10:19 Baso % (Auto) 0.7 % 04/17/23 10:19 Neut # (Auto) 5.23 10^3/uL (1.8-7.7) 04/17/23 10:19 Lymph # (Auto) 1.9 10^3/uL (0.8-4.8) 04/17/23 10:19 Carolina # (Auto) 0.5 10^3/uL (0.2-0.9) 04/17/23 10:19 Eos # (Auto) 0.4 10^3/uL (0.0-0.8) 04/17/23 10:19 Baso # (Auto) 0.1 10^3/uL (0.0-0.1) 04/17/23 10:19 Nucleated RBC % (auto) 0 % 04/17/23 10:19 Nucleated RBCs # 0.0 /100WBC 04/17/23 10:19 Sodium 139 mmol/L (136-145) 04/17/23 10:19 Potassium 4.3 mmol/L (3.5-5.1) 04/17/23 10:19 Chloride 103 mmol/L (98-107) 04/17/23 10:19 Carbon Dioxide 27 mmol/L (22-29) 04/17/23 10:19 Anion Gap 13.3 (5-19) 04/17/23 10:19 BUN 12 mg/dL (6-20) 04/17/23 10:19 Creatinine 0.6 mg/dL (0.5-0.9) 04/17/23 10:19 GFR Calculation 113.8 mL/min (90-130) 04/17/23 10:19 Glucose 94 mg/dL (65-115) 04/17/23 10:19 Calculated Osmolality 288 mOsm/kg (285-295) 04/17/23 10:19 Calcium 9.2 mg/dL (8.5-10.5) 04/17/23 10:19 Total Bilirubin 0.4 mg/dL (0.15-1.2) 04/17/23 10:19 AST 12 U/L (0-32) 04/17/23 10:19 ALT 12 U/L (0-33) 04/17/23 10:19 Alkaline Phosphatase 72 U/L (35-105) 04/17/23 10:19 Total Protein 7.3 g/dL (6.6-8.7) 04/17/23 10:19 Albumin 5.0 g/dL (3.5-5.2) 04/17/23 10:19 Globulin 2.3 g/dL (1.3-4.6) 04/17/23 10:19 Urine Color Yellow (Yellow) 04/17/23 10:19 Urine Appearance Hazy (CLEAR) A 04/17/23 10:19 Urine pH 6 (5-7) 04/17/23 10:19 Ur Specific Goff 1.020 (1.005-1.030) 04/17/23 10:19 Urine Protein Neg (Negative) 04/17/23 10:19 Urine Glucose (UA) Norm (Normal) 04/17/23 10:19 Urine Ketones Negative (Negative) 04/17/23 10:19 Urine Blood 2+ (Negative) H 04/17/23 10:19 Urine Nitrate Negative (Negative) 04/17/23 10:19 Urine Bilirubin Neg (Negative) 04/17/23 10:19 Urine Urobilinogen Norm mg/dL (Negative) 04/17/23 10:19 Ur Leukocyte Esterase Negative (Negative) 04/17/23 10:19 Urine RBC 0-4 /hpf (0-2) H 04/17/23 10:19 Urine WBC 0-4 /hpf (0-5) H 04/17/23 10:19 Ur Squamous Epith Cells 5-10 /hpf (0-5) H 04/17/23 10:19 Amorphous Sediment Not Reportable 04/17/23 10:19 Urine Bacteria 2+ /hpf (NONE) H 04/17/23 10:19 Urine Mucus 2+ /hpf 04/17/23 10:19 Urine HCG, Qual Negative (Negative) 04/21/23 11:48 Blood Type O Positive 04/21/23 11:29 Rho(D) Type Positive 04/21/23 11:29 Antibody Screen Negative 04/21/23 11:29 Vitals Last Vital Signs Temp 97.8 F 04/22/23 03:17 Pulse 61 04/22/23 03:05 Resp 16 04/21/23 15:11 BP 124/70 04/22/23 03:05 Pulse Ox 95 04/21/23 20:33 O2 Del Method Room Air 04/21/23 15:28 O2 Flow Rate 6 04/21/23 14:46 Discharge Plan Discharge Patient Disposition: Home Condition: Stable Prescriptions: New acetaminophen 325 mg capsule 325 mg PO Q4H PRN (Reason: fever or pain) Qty: 60 0RF ibuprofen 800 mg tablet 800 mg PO TID PRN (Reason: pain) Qty: 60 0RF docusate sodium [Colace] 100 mg capsule 100 mg PO BID Qty: 60 0RF Continued trazodone 50 mg tablet 50 mg PO DAILY fluticasone propionate [Flonase Allergy Relief] 50 mcg/actuation spray,suspension 2 spray intranasal BID Rx Instructions: administer into each nostril fluoxetine 10 mg capsule 20 mg PO DAILY ibuprofen 800 mg tablet 800 mg PO TID PRN (Reason: pain) Qty: 90 0RF Rx Instructions: Take 1 tablet by mouth three times daily as needed for pain. clobetasol 0.05 % cream 1 applic topical BID 14 Days Qty: 60 2RF famotidine 20 mg tablet 20 mg PO DAILY Discharge Orders: Discharge Order (Routine); Ordered 04/22/23 Ordered By: Ronny Brown Discharge Diet: GI Soft and Soft Mechanical Discharge Activity: Limit activity as instructed Patient Instructions: Opioid Safety, Anterior Vaginal Repair (GEN), Posterior Vaginal Repair (GEN) Activity Restrictions/Additional Instructions: 1. Please call [facility] on next working day to make your post-operative appointment in 2 weeks. 2. Please stay home until you come back to the clinic on first post-hospatilization check up. 3. Please follow instructions on your medications CAREFULLY. 4. If you have abdominal incision, do not cover it unless dressing is necessary because of drainage. OK to shower, but avoid bath. Leave steri-strips until they fall off. If they are still on one week after surgery, you may remove them. 5. If you had vaginal surgery or vaginal repair, Dr. Brown may instruct you to take SITZ bath. 6. Yellow, blood tinged odorous vaginal discharge is usually normal after hysterectomy or vaginal surgeries. 7. No SEXUAL INTERCOURSE, tampons, or douches until you are completely released from the post-operative care. 8. Avoid constipation by eating right and maybe using some Metamucil or Milk of Magnesia. 9. All prescription refills are given during the working hours. Please do no wait till it runs out. Call the clinic at [phone] before your medication runs out. The clinic will get in touch with your doctor to prescribe medications if necessary. 10. Please remain within 40 mile radius from our hospital because emergencies do happen now and then during the post-operative period. 11. If you have stairs at home, take one step at a time slowly and minimize the number of trips. It helps to stay in one floor for the next few days. No lifting except what you can lift by one hand until you are released from the post-operative care. 12. Driving is discouraged until you are well healed. It may be 3-4 weeks before you feel strong enough to drive. You should be able to turn and look through the rear window without pain and you should be able to push the brake pedal very hard without pain before you drive. No fast rules, but SAFETY should be your primary concern. DO NOT drive if you are on sedating medications such as narcotics. 13. Call the clinic (during working hours) to make urgent appointment or go to the Emergency room, if any of the following occurs: i. Vaginal bleeding becomes heavy, more than a period. ii. Incision becomes red and sore, or drains pus. iii. Your TEMPERATURE is over 100.4F or you have chill. iv. IV site becomes red and swollen (a little ``knot?? is usually OK) v. Persistent nausea and vomiting vi. Persistent constipation or diarrhea vii. Rash or allergic reaction to medications. Discharge Attestations RENEWABLE ENERGY ENGINEER Time Spent in Discharge Care*: greater than 30 min Coding Level of Care Code Acute Code for Chg Fwd Diagnoses
[2023-04-22] MEDS: docusate sodium 100 mg Capsule PO (09:08)
[2023-04-22] MEDS: ibuprofen 800 mg tablet PO (09:08)
[2023-04-22 09:12] VITALS: BP 124/79; PULSE 64
[2023-04-22 09:15] VITALS: BP 124/79; PULSE 64; RESP 16; TEMP 36.6; O2SAT 97
== END 2023-04-22 09:17 | disposition home or self-care (01) ==
LOC: OBGYN 15:11
PROVIDERS: Admitting Provider Obstetrics & Gynecology; PCP Nurse Practitioner Family; Visit Provider Obstetrics & Gynecology
PROC: 0JQC0ZZ Repair Pelvic Region Subcutaneous Tissue and Fascia, Open Approach (ICD-10-PCS; CPT 57240; principal; 2023-04-21 12:10)
PROC: (CPT 57250; 2023-04-21 12:10)
DX: N81.10 Cystocele, unspecified (principal); N81.6 Rectocele
CPT/HCPCS: 57260; 57267; 36415; 80053; 81001; 81025; 84703; 85025; 85027; 86850; 86900; 87086; 96374; 96376; C1762; G0378; J1100; J1200; J1885; J1956; J2250; J2405; J2704; J3010; J3490; J7030; J7040; J7121

== ENCOUNTER 2023-06-19 19:14 | Emergency (ER) | payer MEDICAID, SELFPAY ==
[2023-06-19 19:15] VITALS: BP 163/113; PULSE 83; RESP 18; TEMP 36.9; O2SAT 96; BMI 31.3
[2023-06-19 19:51] LABS: Basophils % 0.2 %; Eosinophils # 0.3 10^3/uL (0.0-0.8); Eosinophils % 3.1 %; Hematocrit 41.2 % (36-47); Lymphocytes # 2.1 10^3/uL (0.8-4.8); Lymphocytes % 21.2 %; Mean Corpuscular HGB Conc 33.3 g/dL (30-55); Mean Corpuscular Hemoglobin 27.9 pg (27-33); Mean Corpuscular Volume 83.9 fl (85-98); Mean Platelet Volume 8.4 fL (7.4-10.4); Monocytes # 0.9 10^3/uL (0.2-0.9); Monocytes % 9.4 %; Neutrophils # 6.36 10^3/uL (1.8-7.7); Neutrophils % 65.8 %; Nucleated Red Blood Cells % 0 %; Platelet Count 293 10^3/cmm (157-399); Red Blood Count 4.91 10^6/uL (3.85-5.65); Red Cell Distribution Width 12.7 % (12.1-15.1); White Blood Count 9.67 10^3/uL (3.29-11.43)
--- NOTE | 2023-06-19 19:52 | ED_ITS ---
HPI - Abdominal Pain General: Chief Complaint: Abdominal Pain Stated Complaint: abdominal pain Time Seen by Provider: 06/19/23 19:52 History of Present Illness: 38-year-old female comes in today with periumbilical pain. Patient reports that since Thursday she has had some increasing pain and discomfort to the periumbilical area with diarrhea. Patient has had multiple abdominal surgeries including a umbilical hernia repair, gallbladder removal, tubal ligation, pelvic organ prolapse. Patient has a history of 3 prior pregnancies. Patient denies any urinary discomfort. Patient reports some hot flashes. Patient appears nontoxic. Patient appears in mild to moderate pain. Associated Symptoms: Reports diarrhea and nausea; Denies constipation, fever(s) and vomiting Review of Systems General: Reports: 10 or more systems reviewed and unremarkable except in HPI and below Const: Denies: fever(s) Card: Denies: chest pain Resp: Denies: dyspnea GI: Reports: abdominal pain, nausea and diarrhea; Denies: vomiting or constipation : Denies: flank pain, difficulty voiding or vaginal bleeding Musc: Denies: neck pain or back pain Skin/Breast: Denies: rash Neuro: Denies: headache(s) [facility] ED PFSH: Medical History ASCUS with positive high risk HPV cervical Surgical History H/O bilateral salpingectomy (~04/02/22) LAPAROSCOPIC-- Dr. Brown History of anterior colporrhaphy (~04/21/23) Anterior and posterior colporrhaphy augmented with allograft performed by Dr. Brown at [facility] for cystocele and rectocele S/P cholecystectomy 2018, hernia repair done at the same time of gallbladder removal Family History Grandmother Thyroid disease paternal Denies family history of Colon cancer Ovarian cancer Diabetes Clotting disorder Heart disease Hyperlipidemia Breast cancer Anesthesia complication Bleeding disorder Hypertension Uterine cancer Stroke Social History Smoking and tobacco/nicotine status: former use of tobacco/nicotine Substance/Drug Use: current Substance/Drug use frequency: daily Other substance/drug use details: states that she has a medical card Physical Exam Const: COMMON NORMALS: alert HENMT: COMMON NORMALS: normocephalic HEAD & SCALP: normocephalic Neck/C-Spine: COMMON NORMALS: full ROM Chest: COMMONS NORMALS: normal inspection of the chest Resp: COMMON NORMALS: normal respiratory effort Cardio: COMMON NORMALS: regular rate RATE: regular rate GI: COMMON NORMALS: Soft to palpation PALPATION: Yes Soft to palpation and Yes Tenderness to palpation present (GI) (Umbilical) : COMMON NORMALS: Yes no CVA tenderness BLADDER/KIDNEY EXAM: Yes no CVA tenderness Back/Pelvis: COMMON NORMALS: no CVA tenderness Extremity: COMMON NORMALS: normal to inspection and no pedal edema Neuro: SENSORIUM/ORIENTATION: Yes alert Skin: COMMON NORMALS: turgor normal GENERAL SKIN EXAM: turgor normal Course Vital Signs: Vital signs: Vital Signs Temperature 98.5 F 06/19/23 19:15 Pulse Rate 88 06/19/23 21:23 Respiratory Rate 16 06/19/23 21:23 Blood Pressure 126/65 06/19/23 21:23 Pulse Oximetry 99 06/19/23 21:23 Oxygen Delivery Me thod Room Air 06/19/23 21:23 MDM - Abdominal Pain Medical Decision Making 38-year-old female comes in today with lower abdominal/periumbilical pain. On exam abdomen soft with some tenderness in the periumbilical area. Bowel sounds are normal. Vital signs were normal except for elevated blood pressure. Differential diagnosis includes but not limited to appendicitis, bowel obstruction, surgical adhesions, gastroenteritis, urinary tract infection. CBC and CMP were unremarkable. Urinalysis showed no signs of infection. CT of the abdomen and pelvis was performed due to patient's severe pain. CT noted inflammation of the small bowel and colon suggestive of some gastroenteritis. Patient be continued on medications for pain and nausea recommendations for follow-up or return to the ER for worsening symptoms. Patient reported understanding and agreed to plan. Lab Data 06/19/23 19:40 06/19/23 19:40 Labs/Radiology: Radiology Impressions Abdomen/Pelvis CT 06/19/23 20:02 IMPRESSION: 1. Fluid within the small bowel and colon without evidence of bowel wall thickening. This may reflect viral gastroenteritis in the appropriate clinical situation. 2. Dominant follicle in the right ovary. 3. Incidental/nonacute findings are listed in the report. Laboratory Results WBC 9.67 10^3/uL (3.29-11.43) 06/19/23 19:40 RBC 4.91 10^6/uL (3.85-5.65) 06/19/23 19:40 Hgb 13.70 g/dL (11.27-16.99) 06/19/23 19:40 Hct 41.2 % (36-47) 06/19/23 19:40 MCV 83.9 fl (85-98) L 06/19/23 19:40 MCH 27.9 pg (27-33) 06/19/23 19:40 MCHC 33.3 g/dL (30-55) 06/19/23 19:40 RDW 12.7 % (12.1-15.1) 06/19/23 19:40 Plt Count 293 10^3/cmm (157-399) 06/19/23 19:40 MPV 8.4 fL (7.4-10.4) 06/19/23 19:40 Neut % (Auto) 65.8 % 06/19/23 19:40 Lymph % (Auto) 21.2 % 06/19/23 19:40 Rogers % (Auto) 9.4 % 06/19/23 19:40 Eos % (Auto) 3.1 % 06/19/23 19:40 Baso % (Auto) 0.2 % 06/19/23 19:40 Neut # (Auto) 6.36 10^3/uL (1.8-7.7) 06/19/23 19:40 Lymph # (Auto) 2.1 10^3/uL (0.8-4.8) 06/19/23 19:40 Rogers # (Auto) 0.9 10^3/uL (0.2-0.9) 06/19/23 19:40 Eos # (Auto) 0.3 10^3/uL (0.0-0.8) 06/19/23 19:40 Baso # (Auto) 0.0 10^3/uL (0.0-0.1) 06/19/23 19:40 Nucleated RBC % (auto) 0 % 06/19/23 19:40 Nucleated RBCs # 0.0 /100WBC 06/19/23 19:40 Sodium 136 mmol/L (136-145) 10/27/23 19:40 Potassium 3.5 mmol/L (3.5-5.1) 06/19/23 19:40 Chloride 99 mmol/L (98-107) 06/19/23 19:40 Carbon Dioxide 23 mmol/L (22-29) 06/19/23 19:40 Anion Gap 17.5 (5-19) 06/19/23 19:40 BUN 10 mg/dL (6-20) 06/19/23 19:40 Creatinine 0.7 mg/dL (0.5-0.9) 06/19/23 19:40 GFR Calculation 94.7 mL/min (90-130) 06/19/23 19:40 Glucose 105 mg/dL (65-115) 06/19/23 19:40 Calculated Osmolality 281 mOsm/kg (285-295) L 06/19/23 19:40 Calcium 9.8 mg/dL (8.5-10.5) 06/19/23 19:40 Total Bilirubin 0.6 mg/dL (0.15-1.2) 06/19/23 19:40 AST 11 U/L (0-32) 06/19/23 19:40 ALT 10 U/L (0-33) 06/19/23 19:40 Alkaline Phosphatase 105 U/L (35-105) 06/19/23 19:40 Total Protein 8.0 g/dL (6.6-8.7) 06/19/23 19:40 Albumin 5.0 g/dL (3.5-5.2) 06/19/23 19:40 Globulin 3.0 g/dL (1.3-4.6) 06/19/23 19:40 Lipase 19 U/L (13-60) 06/19/23 19:40 HCG, Qual Negative (Negative) 06/19/23 19:40 Urine Color Yellow (Yellow) 06/19/23 20:24 Urine Appearance Hazy (CLEAR) A 06/19/23 20:24 Urine pH 6 (5-7) 06/19/23 20:24 Ur Specific Bassett 1.010 (1.005-1.030) 06/19/23 20:24 Urine Protein Neg (Negative) 06/19/23 20:24 Urine Glucose (UA) Norm (Normal) 06/19/23 20:24 Urine Ketones 1+ (Negative) H 06/19/23 20:24 Urine Blood 2+ (Negative) H 06/19/23 20:24 Urine Nitrate Negative (Negative) 06/19/23 20:24 Urine Bilirubin Neg (Negative) 06/19/23 20:24 Urine Urobilinogen Neg mg/dL (Negative) 06/19/23 20:24 Ur Leukocyte Esterase Negative (Negative) 06/19/23 20:24 Urine RBC 0-4 /hpf (0-2) H 06/19/23 20:24 Urine WBC None /hpf (0-5) 06/19/23 20:24 Ur Squamous Epith Cells 5-10 /hpf (0-5) H 06/19/23 20:24 Amorphous Sediment Not Reportable 06/19/23 20:24 Urine Bacteria Trace /hpf (NONE) 06/19/23 20:24 All radiology interpretation(s) finalized by discharge Discharge Plan Discharge Patient Disposition: Home Clinical Impression: Gastroenteritis Condition: Stable Prescriptions: New ondansetron 4 mg tablet,disintegrating 4 mg PO Q8H PRN (Reason: nausea and vomiting) Qty: 10 0RF hydrocodone-acetaminophen 5-325 mg tablet 1 tab PO Q6H PRN (Reason: pain (scale score 7-10)) Qty: 7 0RF No Action trazodone 50 mg tablet 50 mg PO DAILY fluoxetine 10 mg capsule 20 mg PO DAILY famotidine 20 mg tablet 20 mg PO DAILY Discharge Orders: Discharge ED (Routine); Ordered 06/19/23 Ordered By: Pravin Arredondo Referrals: Jumana Aguero FNP [Primary Care Provider] - Discharge Diet: Advance as tolerated Discharge Activity: Increase activity as tolerated Patient Instructions: Gastroenteritis (ED) Activity Restrictions/Additional Instructions: Home and rest. Drink plenty of water and fluids. Use ondansetron 4 mg every 8 hours for nausea and vomiting. Use hydrocodone for pain. Start with a diet of clear liquids for the next 12 to 24 hours until pain improves. Then increase diet slowly over 2 to 3 days. Start with bland foods. Follow-up with primary care for further instruction. Return to ER for worsening symptoms such as high fever greater than 100.4, blood in vomit or stool, or new concerns. Coding Level of Care Code ED Tours Hostess for Wendie French
--- NOTE | 2023-06-19 20:02 | CTR_ITS ---
PROCEDURE INFORMATION: Exam: CT Abdomen And Pelvis With Contrast Exam date and time: 06/19/2023 8:43 PM Age: 38 years old Clinical indication: Nausea and vomiting; Abdominal pain; Prior surgery; Surgery date: 6+ months; Surgery type: Gb. Hernia repair. Tubal. Patient HX: Periumbilical pain with n/v. ; Additional info: Periumbilical pain, n/v/d TECHNIQUE: Imaging protocol: Computed tomography of the abdomen and pelvis with contrast. Sagittal and coronal reformatted images were created and reviewed. Radiation optimization: All CT scans at this facility use at least one of these dose optimization techniques: automated exposure control; mA and/or kV adjustment per patient size (includes targeted exams where dose is matched to clinical indication); or iterative reconstruction. Contrast material: OMNI 350; Contrast volume: 100 ml; Contrast route: INTRAVENOUS (IV); REPORTING DATA: Count of CT and Cardiac NM exams in prior 12 months: This patient has received 0 known CTs and 0 known cardiac nuclear medicine studies in the 12 months prior to the current study. COMPARISON: CT chest abdomen w con* 11/09/2018 1:47 PM RADIATION DOSE METRICS: Total DLP (mGy-cm): 812.45 FINDINGS: Lungs: Visualized lungs are clear. Pleural spaces: No pleural effusion. Heart: Visualized portions of the heart are unremarkable. Liver: The liver is unremarkable. Gallbladder and bile ducts: Stable findings consistent with a previous cholecystectomy. No biliary ductal dilatation. Pancreas: The pancreas is unremarkable. No pancreatic ductal dilatation. Spleen: The spleen is unremarkable. Adrenal glands: The right and left adrenal glands are unremarkable. Kidneys and ureters: The right and left kidneys are unremarkable. The right and left ureters are unremarkable. Stomach and bowel: Fluid within the small bowel and colon without evidence of bowel wall thickening. Appendix: The appendix is visualized and is unremarkable. No findings to suggest acute appendicitis. Intraperitoneal space: No free intraperitoneal air. No ascites. No loculated fluid collections to suggest an abscess. Vasculature: No evidence for aortic aneurysm or aortic dissection. Hepatic veins, portal veins, splenic vein, and SMV are patent. Lymph nodes: No lymphadenopathy. Urinary bladder: The bladder is unremarkable for the degree of distension. Reproductive: Dominant follicle in the right ovary measuring 1.5 x 1.5 cm (series 3, image 70). Multiple subcentimeter follicles in both right and left ovaries. Bones/joints: Mild degenerative changes in the visualized spine. Soft tissues: The patient has bilateral nipple piercings. The extra-abdominal soft tissues are unremarkable. CT/CT abdomen pelvis w con* [id number] IMPRESSION: 1. Fluid within the small bowel and colon without evidence of bowel wall thickening. This may reflect viral gastroenteritis in the appropriate clinical situation. 2. Dominant follicle in the right ovary. 3. Incidental/nonacute findings are listed in the report.
[2023-06-19 20:17] VITALS: RESP 24; O2SAT 97
[2023-06-19] MEDS: morphine 4 mg/mL SDV 1 mL IVP (20:17)
[2023-06-19] MEDS: sodium chloride 0.9% 500 ML 999 ML IV (20:19)
[2023-06-19] MEDS: ondansetron 2 mg/ML SDV 2 mL 4 MG IVP (20:21)
[2023-06-19 20:26] LABS: Alanine Aminotransferase 10 U/L (0-33); Alkaline Phosphatase 105 U/L (35-105); Anion Gap 17.5 (5-19); Aspartate Amino Transferase 11 U/L (0-32); Blood Urea Nitrogen 10 mg/dL (6-20); Calcium 9.8 mg/dL (8.5-10.5); Carbon Dioxide 23 mmol/L (22-29); Chloride 99 mmol/L (98-107); Glomerular Filtration Rate 94.7 mL/min (90-130); Glucose 105 mg/dL (65-115); Lipase 19 U/L (13-60); Osmolality Calculated 281 mOsm/kg (285-295); Potassium 3.5 mmol/L (3.5-5.1); Sodium 136 mmol/L (136-145); Total Bilirubin 0.6 mg/dL (0.15-1.2)
[2023-06-19 20:29] VITALS: BP 150/92; PULSE 78; RESP 18; O2SAT 95
[2023-06-19 20:29] LABS: HCG, Serum Qual Negative (Negative)
[2023-06-19] MEDS: iohexol 350 mg/mL 500 mL Btl (per mL) IV (20:46)
[2023-06-19 21:04] LABS: Add Urine Culture? No; Add Urine Microscopic? YES; Bacteria Urine TRACE /hpf; Bilirubin Urine Neg (Negative); Blood Urine 2+ (Negative); Glucose Urine UA Norm (Normal); Ketones Urine 1+ (Negative); Leukocyte Esterase Urine Negative (Negative); Nitrate Urine Negative (Negative); Protein Urine Neg (Negative); RBC Urine 0-4 /hpf (0-2); Urine Appearance Hazy (CLEAR); Urine Color Yellow (Yellow); Urobilinogen Urine Neg (Negative); pH Urine 6 (5-7)
[2023-06-19 21:23] VITALS: BP 126/65; PULSE 88; RESP 16; O2SAT 99
[2023-06-19 21:31] VITALS: BP 144/99; PULSE 87; RESP 18; O2SAT 97
== END 2023-06-19 21:31 | disposition home or self-care (01) ==
PROVIDERS: Emergency Provider Nurse Practitioner Family; PCP Nurse Practitioner Family
DX: K52.9 Noninfective gastroenteritis and colitis, unspecified (principal); Z87.891 Personal history of nicotine dependence
CPT/HCPCS: 36415; 74177; 80053; 81001; 83690; 84703; 85025; 96374; 96375; 99285; J2270; J2405; J7040; Q9967

== ENCOUNTER 2023-06-22 09:24 | Emergency (ER) | payer MEDICAID, SELFPAY ==
[2023-06-22 09:47] VITALS: BP 137/99; PULSE 85; RESP 16; TEMP 36.6; O2SAT 100; BMI 30.8
--- NOTE | 2023-06-22 09:59 | W.ED.ABDPA2 ---
HPI - Abdominal Pain General: Chief Complaint: Abdominal Pain Stated Complaint: abd pain Time Seen by Provider: 06/22/23 09:27 Source: patient Mode of arrival: ambulatory Limitations: no limitations History of Present Illness: Patient is a 38-year-old female presents to ED today with a complaint of abdominal pain, nausea, vomiting, diarrhea. Patient states symptoms have been present over the past 8 days or so. She states she was seen here in our emergency department a few days ago and had normal blood work and a CT scan performed. Results of CT scan are as follows: CT/CT abdomen pelvis w con* [id number] IMPRESSION: 1. ? Fluid within the small bowel and colon without evidence of bowel wall thickening. This may reflect viral gastroenteritis in the appropriate clinical situation. 2. ? Dominant follicle in the right ovary. 3. ? Incidental/nonacute findings are listed in the report. Patient states she was prescribed Zofran and Hydrocodone for pain. She states she initially thought these medications were helping in addition to her bland liquid diet she had been doing but states this morning she woke up and even after Zofran vomited several times. She states she always has pain but then has severe intermittent exacerbations. Patient does report a history of chronic abdominal pain secondary to multiple surgeries. She has not noticed any blood in her emesis or stools but reports her emesis this morning was green in color. She feels like her clinical course is not necessarily worsening-just failing to improve. No fevers. MD elicited complaint: abdominal pain Onset (ago): day(s) (8 days) Pain Consistency: intermittent Location: Diffuse Severity: severe Quality: cramping Radiation: none Migration to: no migration Exacerbating factors: eating Relieving factors: other (zofran/hydrocodone were helping but not now) Associated Symptoms: Reports GI cramping, diarrhea, nausea and vomiting; Denies chills, dysuria, fever(s), heartburn, hematochezia, hematemesis, melena and syncope Related Data: Patient : No Review of Systems Const: Denies: fever(s), chills, body aches, fatigue or malaise Eyes: Denies: change in vision or blurry vision Card: Denies: chest pain, palpitations, irregular heart rhythm, lightheadedness, syncope or dyspnea on exertion Resp: Denies: dyspnea, productive cough or pain on inspiration GI: Reports: abdominal pain, nausea, vomiting, diarrhea and GI cramping; Denies: hematemesis, heartburn, rectal pain, rectal swelling, rectal itching, hematochezia or melena : Denies: flank pain, difficulty voiding, dysuria, urinary frequency, urinary urgency or urinary hesitancy Musc: Denies: neck pain, back pain, extremity pain, extremity swelling or joint pain Skin/Breast: Denies: rash Neuro: Denies: headache(s), numbness in extremities, weakness in extremities, sensory changes or dizziness PFS ED PFSH: Medical History ASCUS with positive high risk HPV cervical Surgical History H/O bilateral salpingectomy (~04/02/22) LAPAROSCOPIC-- Dr. Brown History of anterior colporrhaphy (~04/21/23) Anterior and posterior colporrhaphy augmented with allograft performed by Dr. Brown at [facility] for cystocele and rectocele S/P cholecystectomy 2018, hernia repair done at the same time of gallbladder removal Family History Grandmother Thyroid disease paternal Denies family history of Colon cancer Ovarian cancer Diabetes Clotting disorder Heart disease Hyperlipidemia Breast cancer Anesthesia complication Bleeding disorder Hypertension Uterine cancer Stroke Social History Smoking and tobacco/nicotine status: former use of tobacco/nicotine Substance/Drug Use: current Substance/Drug use frequency: daily Other substance/drug use details: states that she has a medical card Physical Exam Const: COMMON NORMALS: no acute distress, average body habitus, patient oriented x3, no limitations, healthy appearing, alert and well nourished GENERAL APPEARANCE: cooperative ORIENTATION/CONSCIOUSNESS: Yes awake, Yes oriented to person, Yes oriented to place and Yes oriented to time Eye: COMMON NORMALS: no scleral icterus Resp: COMMON NORMALS: normal respiratory effort and clear to auscultation bilaterally AUSCULTATION: clear to auscultation bilaterally Cardio: COMMON NORMALS: regular rate and regular rhythm RATE: regular rate RHYTHM: regular rhythm GI: COMMON NORMALS: Normal to inspection, nondistended, normoactive bowel sounds present, Soft to palpation, No hepatosplenomegaly present and no masses INSPECTION: Yes normal to inspection AUSCULTATION: Yes normoactive bowel sounds PALPATION: Yes Soft to palpation, Yes Tenderness to palpation present (GI) (throughout upper/mid abdomen), No Guarding due to palpation present (GI), No Rigid due to palpation and Yes No hepatosplenomegaly present : COMMON NORMALS: Yes no CVA tenderness BLADDER/KIDNEY EXAM: Yes no CVA tenderness Back/Pelvis: COMMON NORMALS: no CVA tenderness Neuro: COMMON NORMALS: patient oriented x3 SENSORIUM/ORIENTATION: Yes alert, Yes oriented to person, Yes oriented to place and Yes oriented to time Course Reevaluation(s): Reevaluation #1: Patient feeling much better after IV pain/nausea meds. Currently rating pain at a 3/10. ES Vital Signs: Vital signs: Vital Signs Temperature 97.9 F 06/22/23 09:47 Pulse Rate 85 06/22/23 09:47 Respiratory Rate 16 06/22/23 10:33 Blood Pressure 137/99 06/22/23 09:47 Pulse Oximetry 100 06/22/23 09:47 Oxygen Delivery Me thod Room Air 06/22/23 09:47 MDM - Abdominal Pain Medical Decision Making Patient reporting feeling much better after IV fluids, pain medications, nausea medications. She was able to eat jello, crackers, and fluid here without difficulty. She just received CT imaging three days ago so I do not want to repeat this today. I don't think there has been enough change/concern in her illness to warrant repeat radiation. Vitals are normal. Blood work overall looks okay. She is mildly hypokalemic at 3.0. She was given oral potassium here. Non-specific elevations to LFTs with AST/ALT in the 30s/50s. This was not present upon her last visit. She has a normal tbili and lipase. She has had a cholecystectomy. She was able to give stool sample so this was collected. Lactoferrin and fecal occult blood was positive. Stool sample was mucosy. I think it is reasonable to place her on antibiotics for a presumed infectious etiology given this information. She will be contacted in regards to her stool samples if anything comes back positive. Recommend she follow-up with primary care as soon as possible for further evaluation. Strict return ED precautions given. Lab Data 06/22/23 09:52 06/22/23 09:52 Labs/Radiology: Laboratory Results WBC 6.86 10^3/uL (3.29-11.43) 06/22/23 09:52 RBC 5.10 10^6/uL (3.85-5.65) 06/22/23 09:52 Hgb 14.30 g/dL (11.27-16.99) 06/22/23 09:52 Hct 41.2 % (36-47) 06/22/23 09:52 MCV 80.8 fl (85-98) L 06/22/23 09:52 MCH 28.0 pg (27-33) 06/22/23 09:52 MCHC 34.7 g/dL (30-55) 06/22/23 09:52 RDW 12.3 % (12.1-15.1) 06/22/23 09:52 Plt Count 360 10^3/cmm (157-399) 06/22/23 09:52 MPV 8.2 fL (7.4-10.4) 06/22/23 09:52 Neut % (Auto) 63.8 % 06/22/23 09:52 Lymph % (Auto) 20.4 % 06/22/23 09:52 [place] % (Auto) 13.6 % 06/22/23 09:52 Eos % (Auto) 1.3 % 06/22/23 09:52 Baso % (Auto) 0.6 % 06/22/23 09:52 Neut # (Auto) 4.38 10^3/uL (1.8-7.7) 06/22/23 09:52 Lymph # (Auto) 1.4 10^3/uL (0.8-4.8) 06/22/23 09:52 [place] # (Auto) 0.9 10^3/uL (0.2-0.9) 06/22/23 09:52 Eos # (Auto) 0.1 10^3/uL (0.0-0.8) 06/22/23 09:52 Baso # (Auto) 0.0 10^3/uL (0.0-0.1) 06/22/23 09:52 Nucleated RBC % (auto) 0 % 06/22/23 09:52 Nucleated RBCs # 0.0 /100WBC 06/22/23 09:52 Sodium 134 mmol/L (136-145) L 06/22/23 09:52 Potassium 3.0 mmol/L (3.5-5.1) L 06/22/23 09:52 Chloride 94 mmol/L (98-107) L 06/22/23 09:52 Carbon Dioxide 25 mmol/L (22-29) 06/22/23 09:52 Anion Gap 18.0 (5-19) 06/22/23 09:52 BUN 8 mg/dL (6-20) 06/22/23 09:52 Creatinine 0.7 mg/dL (0.5-0.9) 06/22/23 09:52 GFR Calculation 94.7 mL/min (90-130) 06/22/23 09:52 Glucose 103 mg/dL (65-115) 06/22/23 09:52 Calculated Osmolality 277 mOsm/kg (285-295) L 06/22/23 09:52 Lactic Acid 0.8 mmol/L (0.5-2.2) 06/22/23 09:52 Calcium 9.9 mg/dL (8.5-10.5) 06/22/23 09:52 Total Bilirubin 0.4 mg/dL (0.15-1.2) 06/22/23 09:52 AST 35 U/L (0-32) H 06/22/23 09:52 ALT 55 U/L (0-33) H 06/22/23 09:52 Alkaline Phosphatase 116 U/L (35-105) H 06/22/23 09:52 Total Protein 8.1 g/dL (6.6-8.7) 06/22/23 09:52 Albumin 5.3 g/dL (3.5-5.2) H 06/22/23 09:52 Globulin 2.8 g/dL (1.3-4.6) 06/22/23 09:52 Lipase 13 U/L (13-60) 06/22/23 09:52 HCG, Qual Negative (Negative) 06/22/23 09:52 Urine Color Dark yellow (Yellow) 06/22/23 10:11 Urine Appearance Sl hazy (CLEAR) A 06/22/23 10:11 Urine pH 6 (5-7) 06/22/23 10:11 Ur Specific [place] 1.010 (1.005-1.030) 06/22/23 10:11 Urine Protein 1+ (Negative) H 06/22/23 10:11 Urine Glucose (UA) Norm (Normal) 06/22/23 10:11 Urine Ketones 2+ (Negative) H 06/22/23 10:11 Urine Blood 2+ (Negative) H 06/22/23 10:11 Urine Nitrate Negative (Negative) 06/22/23 10:11 Urine Bilirubin Neg (Negative) 06/22/23 10:11 Urine Urobilinogen Neg mg/dL (Negative) 06/22/23 10:11 Ur Leukocyte Esterase Negative (Negative) 06/22/23 10:11 Urine RBC 0-4 /hpf (0-2) H 06/22/23 10:11 Urine WBC 0-4 /hpf (0-5) H 06/22/23 10:11 Ur Squamous Epith Cells 25-40 /hpf (0-5) H 06/22/23 10:11 Amorphous Sediment Not Reportable 06/22/23 10:11 Urine Bacteria 2+ /hpf (NONE) H 06/22/23 10:11 Urine Mucus 1+ /hpf 06/22/23 10:11 No radiology studies performed this visit Discharge Plan Discharge Patient Disposition: Home Clinical Impression: Enterocolitis Condition: Stable Prescriptions: New Reglan 10 mg tablet 10 mg PO Q6H Qty: 15 0RF hydrocodone-acetaminophen 5-325 mg tablet 1 tab PO Q6H PRN (Reason: pain) Qty: 8 0RF metronidazole 500 mg tablet 500 mg PO BID 7 Days Qty: 14 0RF Cipro 500 mg tablet 500 mg PO Q12H Qty: 14 0RF No Action fluoxetine 10 mg capsule 20 mg PO DAILY famotidine 20 mg tablet 20 mg PO DAILY ondansetron 4 mg tablet,disintegrating 4 mg PO Q8H PRN (Reason: nausea and vomiting) Qty: 10 0RF hydrocodone-acetaminophen 5-325 mg tablet 1 tab PO Q6H PRN (Reason: pain (scale score 7-10)) Qty: 7 0RF Discharge Orders: Discharge ED (Routine); Ordered 06/22/23 Ordered By: Annabel Dean Referrals: White,Jumana, PROGRAM MANAGEMENT MANAGER [Primary Care Provider] - Patient Instructions: Opioid Safety, Pain Management Activity Restrictions/Additional Instructions: At this time, many of stool culture tests are currently pending. If anything were to come back positive, you should receive a call and we can tailor treatment regimen based on this. I am placing you on antibiotics at this time for presumed infectious etiology. We will give you a different nausea medication as well as give you a small amount of pain medication you can use sparingly. If symptoms worsen in any way or if you begin having bloody vomit or stools or if you begin running fevers we need to see you back here in the emergency department. I hope you begin to feel better soon. Coding Level of Care Code ED [employer] As[employer]er for Wendie French
[2023-06-22 10:00] LABS: Basophils % 0.6 %; Eosinophils # 0.1 10^3/uL (0.0-0.8); Eosinophils % 1.3 %; Hematocrit 41.2 % (36-47); Lymphocytes # 1.4 10^3/uL (0.8-4.8); Lymphocytes % 20.4 %; Mean Corpuscular HGB Conc 34.7 g/dL (30-55); Mean Corpuscular Volume 80.8 fl (85-98); Mean Platelet Volume 8.2 fL (7.4-10.4); Monocytes # 0.9 10^3/uL (0.2-0.9); Monocytes % 13.6 %; Neutrophils # 4.38 10^3/uL (1.8-7.7); Neutrophils % 63.8 %; Nucleated Red Blood Cells % 0 %; Platelet Count 360 10^3/cmm (157-399); Red Cell Distribution Width 12.3 % (12.1-15.1); White Blood Count 6.86 10^3/uL (3.29-11.43)
[2023-06-22 10:23] LABS: Alanine Aminotransferase 55 U/L (0-33); Albumin Level 5.3 g/dL (3.5-5.2); Alkaline Phosphatase 116 U/L (35-105); Aspartate Amino Transferase 35 U/L (0-32); Blood Urea Nitrogen 8 mg/dL (6-20); Calcium 9.9 mg/dL (8.5-10.5); Carbon Dioxide 25 mmol/L (22-29); Chloride 94 mmol/L (98-107); Globulin 2.8 g/dL (1.3-4.6); Glomerular Filtration Rate 94.7 mL/min (90-130); Glucose 103 mg/dL (65-115); Lactic Sepsis W/Reflex 0.8 mmol/L (0.5-2.2); Lipase 13 U/L (13-60); Osmolality Calculated 277 mOsm/kg (285-295); Sodium 134 mmol/L (136-145); Total Bilirubin 0.4 mg/dL (0.15-1.2); Total Protein 8.1 g/dL (6.6-8.7)
[2023-06-22 10:24] LABS: HCG, Serum Qual Negative (Negative)
[2023-06-22 10:33] VITALS: RESP 16
[2023-06-22] MEDS: morphine 4 mg/mL SDV 1 mL IVP (10:33)
[2023-06-22] MEDS: metoclopramide 5 mg/mL SDV 2 mL 10 MG IVP (10:33)
[2023-06-22] MEDS: sodium chloride 0.9% 1,000 ML 999 ML IV (10:33)
[2023-06-22 11:05] LABS: Urine Appearance SL Hazy (CLEAR); Urine Color Dark Yellow (Yellow); pH Urine 6 (5-7)
[2023-06-22 11:06] LABS: Add Urine Microscopic? YES; Bilirubin Urine Neg (Negative); Blood Urine 2+ (Negative); Glucose Urine UA Norm (Normal); Ketones Urine 2+ (Negative); Leukocyte Esterase Urine Negative (Negative); Nitrate Urine Negative (Negative); Protein Urine 1+ (Negative); Urobilinogen Urine Neg (Negative)
[2023-06-22 11:08] LABS: RBC Urine 0-4 /hpf (0-2); WBC Urine 0-4 /hpf (0-5)
[2023-06-22 11:09] LABS: Add Urine Culture? No; Bacteria Urine 2+ /hpf; Mucus Urine 1+ /hpf; Squamous Epithelial Cell Urine 25-40 /hpf (0-5)
--- NOTE | 2023-06-22 11:23 | PC.NURSE ---
Gave patient maurice and karl to see if she could tolerate eating something.
[2023-06-22] MEDS: potassium chloride ER 20 mEq Tablet 60 MEQ PO (11:24)
--- NOTE | 2023-06-22 11:25 | PC.NURSE ---
MONICA Marquez verbally gave me an order to not administer the Zofran she ordered because the patient had taken Zofran at home earlier and it did not help her. MONICA Marquez then put in an order for Reglan which I did give the patient.
== END 2023-06-22 14:09 | disposition home or self-care (01) ==
PROVIDERS: Emergency Provider Physician Assistant; PCP Nurse Practitioner Family
DX: K52.9 Noninfective gastroenteritis and colitis, unspecified (principal); Z87.891 Personal history of nicotine dependence
CPT/HCPCS: 36415; 80053; 81001; 82274; 83605; 83630; 83690; 84703; 85025; 87045; 87177; 87209; 87324; 87427; 87449; 96361; 96374; 96375; 99284; J2270; J2765; J7030

== ENCOUNTER 2023-06-25 13:55 | Emergency (ER) | payer MEDICAID, SELFPAY ==
[2023-06-25 14:02] VITALS: PULSE 94; RESP 15; TEMP 37; O2SAT 100; BMI 30.5
--- NOTE | 2023-06-25 14:18 | W.ED.ABDPA2 ---
HPI - Abdominal Pain General: Chief Complaint: Abdominal Pain Stated Complaint: abd pain Time Seen by Provider: 06/25/23 14:18 History of Present Illness: Patient presents emergency department with complaints of recurrent nausea and vomiting and generalized abdominal pain. She states she was seen here on 06/19 and 06/22 for abdominal pain she received laboratory evaluation and a CT scan and was diagnosed with enterocolitis. She states she has been taking her Flagyl and ciprofloxacin as prescribed but has had continued and recurrent nausea and vomiting. She states she has intermittent abdominal cramping and pain. She states that she does intermittently smoke marijuana. Associated Symptoms: Reports nausea and vomiting Review of Systems General: Reports: 10 or more systems reviewed and unremarkable except in HPI and below GI: Reports: abdominal pain, nausea and vomiting PFSH ED PFSH: Medical History ASCUS with positive high risk HPV cervical Surgical History H/O bilateral salpingectomy (~04/02/22) LAPAROSCOPIC-- Dr. Brown History of anterior colporrhaphy (~04/21/23) Anterior and posterior colporrhaphy augmented with allograft performed by Dr. Brown at [facility] for cystocele and rectocele S/P cholecystectomy 2018, hernia repair done at the same time of gallbladder removal Family History Grandmother Thyroid disease paternal Denies family history of Colon cancer Ovarian cancer Diabetes Clotting disorder Heart disease Hyperlipidemia Breast cancer Anesthesia complication Bleeding disorder Hypertension Uterine cancer Stroke Social History Smoking and tobacco/nicotine status: former use of tobacco/nicotine Substance/Drug Use: current Substance/Drug use frequency: daily Other substance/drug use details: states that she has a medical card Physical Exam Const: COMMON NORMALS: no acute distress, patient oriented x3 and alert HENMT: COMMON NORMALS: normocephalic and moist oral mucous membranes HEAD & SCALP: normocephalic Eye: COMMON NORMALS: Equal, round and reactive pupils present and EOMs intact bilaterally PUPIL: Yes Equal, round and reactive pupils present Neck/C-Spine: COMMON NORMALS: full ROM, supple and no meningeal signs Resp: COMMON NORMALS: normal respiratory effort and clear to auscultation bilaterally AUSCULTATION: clear to auscultation bilaterally Cardio: COMMON NORMALS: regular rate, regular rhythm, S1 normal heart sound present, S2 normal heart sound present and Peripheral pulses 2+ throughout RATE: regular rate RHYTHM: regular rhythm HEART SOUNDS: S1 normal heart sound present and S2 normal heart sound present PERIPHERAL PULSES: Peripheral pulses 2+ throughout GI: COMMON NORMALS: Normal to inspection, nondistended, normoactive bowel sounds present, Soft to palpation and non-tender PALPATION: Yes Soft to palpation Extremity: COMMON NORMALS: normal to inspection, full ROM and capillary refill normal Neuro: COMMON NORMALS: patient oriented x3, moves all extremities and no sensory deficits noted SENSORIUM/ORIENTATION: Yes alert MENINGEAL SIGNS: Yes no meningeal signs Psych: COMMON NORMALS: mental status grossly normal, Normal thought process present and cooperative THOUGHT PROCESS: Normal thought process present Skin: COMMON NORMALS: no rashes or lesions noted, no wounds and turgor normal GENERAL SKIN EXAM: no rashes or lesions noted and turgor normal Course Vital Signs: Vital signs: Vital Signs Temperature 98.6 F 06/25/23 14:02 Pulse Rate 94 06/25/23 14:02 Respiratory Rate 15 06/25/23 14:02 Pulse Oximetry 100 06/25/23 14:02 Oxygen Delivery Me thod Room Air 06/25/23 14:02 MDM - Abdominal Pain Medical Decision Making Physical exam completed and documented, I did review the patient's previous ER visits as well as her CT scan it does appear that her presenting symptoms are compounded by her cannabinoid induced hyperemesis along with her enteritis which was demonstrated on the CT scan. She is currently taking her Flagyl and ciprofloxacin and she has Zofran and Reglan. Her potassium did appear to be critically low while here in the emergency department and we gave her by mouth potassium which she kept down without any difficulty. I had extensive discussion with her regarding duration of her enteritis as well as importance of completing her antibiotics. We discussed potential causes well as cannabinoid induced hyperemesis for approximately 35 minutes with her and her significant other who is in the room. Medical Records I reviewed the patient's medical records. Lab Data 06/25/23 14:13 06/25/23 14:13 Labs/Radiology: Laboratory Results WBC 7.54 10^3/uL (3.29-11.43) 06/25/23 14:13 RBC 5.11 10^6/uL (3.85-5.65) 06/25/23 14:13 Hgb 14.30 g/dL (11.27-16.99) 06/25/23 14:13 Hct 40.9 % (36-47) 06/25/23 14:13 MCV 80.0 fl (85-98) L 06/25/23 14:13 MCH 28.0 pg (27-33) 06/25/23 14:13 MCHC 35.0 g/dL (30-55) 06/25/23 14:13 RDW 12.5 % (12.1-15.1) 06/25/23 14:13 Plt Count 398 10^3/cmm (157-399) 06/25/23 14:13 MPV 8.1 fL (7.4-10.4) 06/25/23 14:13 Neut % (Auto) 57.5 % 06/25/23 14:13 Lymph % (Auto) 25.2 % 06/25/23 14:13 [place] % (Auto) 12.6 % 06/25/23 14:13 Eos % (Auto) 3.3 % 06/25/23 14:13 Baso % (Auto) 0.5 % 06/25/23 14:13 Neut # (Auto) 4.33 10^3/uL (1.8-7.7) 06/25/23 14:13 Lymph # (Auto) 1.9 10^3/uL (0.8-4.8) 06/25/23 14:13 [place] # (Auto) 1.0 10^3/uL (0.2-0.9) H 06/25/23 14:13 Eos # (Auto) 0.3 10^3/uL (0.0-0.8) 06/25/23 14:13 Baso # (Auto) 0.0 10^3/uL (0.0-0.1) 06/25/23 14:13 Nucleated RBC % (auto) 0 % 06/25/23 14:13 Nucleated RBCs # 0.0 /100WBC 06/25/23 14:13 PT 13.70 SECONDS (12.1-14.9) 06/25/23 14:13 INR 1.02 (0.8-1.2) 06/25/23 14:13 Sodium 133 mmol/L (136-145) L 06/25/23 14:13 Potassium 2.5 mmol/L (3.5-5.1) L* 06/25/23 14:13 Chloride 94 mmol/L (98-107) L 06/25/23 14:13 Carbon Dioxide 25 mmol/L (22-29) 06/25/23 14:13 Anion Gap 16.5 (5-19) 06/25/23 14:13 BUN 11 mg/dL (6-20) 06/25/23 14:13 Creatinine 0.9 mg/dL (0.5-0.9) 06/25/23 14:13 GFR Calculation 70.8 mL/min (90-130) L 06/25/23 14:13 Glucose 95 mg/dL (65-115) 06/25/23 14:13 Calculated Osmolality 275 mOsm/kg (285-295) L 06/25/23 14:13 Calcium 9.8 mg/dL (8.5-10.5) 06/25/23 14:13 Magnesium 1.9 mg/dL (1.7-2.3) 06/25/23 14:13 Total Bilirubin 0.3 mg/dL (0.15-1.2) 06/25/23 14:13 AST 27 U/L (0-32) 06/25/23 14:13 ALT 50 U/L (0-33) H 06/25/23 14:13 Alkaline Phosphatase 120 U/L (35-105) H 06/25/23 14:13 Total Protein 8.1 g/dL (6.6-8.7) 06/25/23 14:13 Albumin 5.1 g/dL (3.5-5.2) 06/25/23 14:13 Globulin 3.0 g/dL (1.3-4.6) 06/25/23 14:13 Lipase 21 U/L (13-60) 06/25/23 14:13 Influenza Type A Ag negative (Negative) 06/25/23 14:28 Influenza Type B Ag negative (Negative) 06/25/23 14:28 SARS-CoV-2 Ag (Rapid) negative (Negative) 06/25/23 14:28 No radiology studies performed this visit Discharge Plan Discharge Patient Disposition: Home Clinical Impression: Acute hypokalemia, Enteritis, Nausea & vomiting Condition: Stable Prescriptions: No Action fluoxetine 10 mg capsule 20 mg PO DAILY metoclopramide HCl [Reglan] 10 mg tablet 10 mg PO Q6H Qty: 15 0RF hydrocodone-acetaminophen 5-325 mg tablet 1 tab PO Q6H PRN (Reason: pain) Qty: 8 0RF metronidazole 500 mg tablet 500 mg PO BID 7 Days Qty: 14 0RF ciprofloxacin HCl [Cipro] 500 mg tablet 500 mg PO Q12H Qty: 14 0RF promethazine 25 mg tablet 2.5 mg PO Q6H PRN (Reason: Nausea And Vomiting) famotidine 20 mg tablet 20 mg PO DAILY ondansetron 4 mg tablet,disintegrating 4 mg PO Q8H PRN (Reason: nausea and vomiting) Qty: 10 0RF Discharge Orders: Discharge ED (Routine); Ordered 06/25/23 Ordered By: Jeremiah Chandler Referrals: Jumana Aguero FNP [Primary Care Provider] - Discharge Diet: Advance as tolerated Discharge Activity: Resume usual activity Patient Instructions: Hypokalemia (ED) Coding Level of Care Code ED Director Of Software Development for Wendie French
[2023-06-25] MEDS: ondansetron 2 mg/ML SDV 2 mL 4 MG IVP (14:24)
[2023-06-25 14:30] LABS: Basophils % 0.5 %; Eosinophils # 0.3 10^3/uL (0.0-0.8); Eosinophils % 3.3 %; Hematocrit 40.9 % (36-47); Lymphocytes # 1.9 10^3/uL (0.8-4.8); Lymphocytes % 25.2 %; Mean Platelet Volume 8.1 fL (7.4-10.4); Monocytes % 12.6 %; Neutrophils # 4.33 10^3/uL (1.8-7.7); Neutrophils % 57.5 %; Nucleated Red Blood Cells % 0 %; Platelet Count 398 10^3/cmm (157-399); Red Blood Count 5.11 10^6/uL (3.85-5.65); Red Cell Distribution Width 12.5 % (12.1-15.1); White Blood Count 7.54 10^3/uL (3.29-11.43)
[2023-06-25 14:40] LABS: INR 1.02 (0.8-1.2)
[2023-06-25 14:47] LABS: Alanine Aminotransferase 50 U/L (0-33); Albumin Level 5.1 g/dL (3.5-5.2); Alkaline Phosphatase 120 U/L (35-105); Anion Gap 16.5 (5-19); Aspartate Amino Transferase 27 U/L (0-32); Blood Urea Nitrogen 11 mg/dL (6-20); Calcium 9.8 mg/dL (8.5-10.5); Carbon Dioxide 25 mmol/L (22-29); Chloride 94 mmol/L (98-107); Glomerular Filtration Rate 70.8 mL/min (90-130); Glucose 95 mg/dL (65-115); Lipase 21 U/L (13-60); Magnesium 1.9 mg/dL (1.7-2.3); Osmolality Calculated 275 mOsm/kg (285-295); Sodium 133 mmol/L (136-145); Total Bilirubin 0.3 mg/dL (0.15-1.2); Total Protein 8.1 g/dL (6.6-8.7)
[2023-06-25 14:51] LABS: Potassium 2.5 mmol/L (3.5-5.1)
[2023-06-25 14:56] LABS: Influenza A by IFA negative (Negative); Influenza B by IFA negative (Negative); SARS Covid-2 Antigen negative (Negative)
[2023-06-25] MEDS: potassium chloride ER 20 mEq Tablet 40 MEQ PO (15:06)
[2023-06-25 15:22] VITALS: BP 138/85; PULSE 90; RESP 16; O2SAT 99
[2023-06-25 15:32] LABS: Add Urine Microscopic? YES; Bilirubin Urine Neg (Negative); Blood Urine Neg (Negative); Glucose Urine UA Norm (Normal); Ketones Urine 1+ (Negative); Leukocyte Esterase Urine Negative (Negative); Nitrate Urine Negative (Negative); Protein Urine Neg (Negative); Urine Appearance Hazy (CLEAR); Urine Color Yellow (Yellow); Urobilinogen Urine Norm (Negative); pH Urine 6 (5-7)
[2023-06-25 15:36] LABS: HCG Qualitative Urine. Negative (Negative)
[2023-06-25 15:41] LABS: Amphetamines Screen Urine Negative (Negative); Barbiturates Screen Urine Negative (Negative); Benzodiazepines Screen Urine Negative (Negative); Cocaine Screen Urine Negative (Negative); Opiate Screen Urine Positive (Negative); PCP Screen Urine Negative (Negative); THC Screen Urine Positive (Negative)
[2023-06-25 15:46] LABS: Add Urine Culture? No; Bacteria Urine TRACE /hpf; Hyaline Casts Urine 0-4 /lpf; Mucus Urine 2+ /hpf; RBC Urine RARE /hpf (0-2); WBC Urine RARE /hpf (0-5)
== END 2023-06-25 15:23 | disposition home or self-care (01) ==
PROVIDERS: Emergency Provider Internal Medicine; PCP Nurse Practitioner Family
DX: K52.9 Noninfective gastroenteritis and colitis, unspecified (principal); E87.6 Hypokalemia; Z11.52 Encounter for screening for COVID-19; Z87.891 Personal history of nicotine dependence
CPT/HCPCS: 80053; 80306; 81001; 81025; 83690; 83735; 85025; 85610; 87426; 87804; 96374; 99284; J2405

== ENCOUNTER 2023-11-10 08:21 | Outpatient (CLI) | payer MEDICAID, SELFPAY ==
--- NOTE | 2023-11-10 08:30 | MM_ITS ---
WS: [id number] DIAGNOSTIC BILATERAL DIGITAL BREAST TOMOSYNTHESIS MAMMOGRAPHY WITH CAD LEFT breast ultrasound, limited HISTORY: N64.4 - Mastodynia COMPARISON: None available. TECHNIQUE: Bilateral craniocaudad, mediolateral oblique, and mediolateral views are submitted with to mosynthesis and SM. Spot compression LEFT CC and MLO. Computer aided detection utilized. Breast composition: There are scattered areas of fibroglandular density. Bilateral nipple piercings a re present. Patient would not remove these. There are no suspicious masses or calcifications identifi ed. LEFT breast ultrasound, limited. LEFT breast ultrasound is directed to the area of pain including 3-6 o'clock. No soft tissue masses i dentified. No soft tissue thickening. IMPRESSION: MM/[place] [id number] BI-RADS: 2-Benign FOLLOW UP: See Report No abnormality noted in the LEFT breast at the area of pain. No additional imag ing follow-up necessary unless there is progressive or interval change.
--- NOTE | 2023-11-10 08:42 | US_ITS ---
WS: [id number] DIAGNOSTIC BILATERAL DIGITAL BREAST TOMOSYNTHESIS MAMMOGRAPHY WITH CAD LEFT breast ultrasound, limited HISTORY: N64.4 - Mastodynia COMPARISON: None available. TECHNIQUE: Bilateral craniocaudad, mediolateral oblique, and mediolateral views are submitted with to mosynthesis and SM. Spot compression LEFT CC and MLO. Computer aided detection utilized. Breast composition: There are scattered areas of fibroglandular density. Bilateral nipple piercings a re present. Patient would not remove these. There are no suspicious masses or calcifications identifi ed. LEFT breast ultrasound, limited. LEFT breast ultrasound is directed to the area of pain including 3-6 o'clock. No soft tissue masses i dentified. No soft tissue thickening. IMPRESSION: US/US breast LT limited* [id number] BI-RADS: 2-Benign FOLLOW UP: See Report No abnormality noted in the LEFT breast at the area of pain. No additional imag ing follow-up necessary unless there is progressive or interval change.
== END 2023-11-10 08:22 | disposition home or self-care (01) ==
LOC: RAD 08:22
PROVIDERS: PCP Nurse Practitioner Family; Visit Provider Obstetrics & Gynecology
DX: N64.4 Mastodynia (principal); R92.323 Mammographic fibroglandular density, bilateral breasts
CPT/HCPCS: 76642; 77062; G0279

== ENCOUNTER 2023-11-30 15:19 | Emergency (ER) | payer MEDICAID, SELFPAY ==
--- NOTE | 2023-11-30 15:21 | XRR_ITS ---
PROCEDURE INFORMATION: Exam: XR Right Foot Exam date and time: 11/30/2023 3:41 PM Age: 38 years old Clinical indication: Injury or trauma; Other: Twisted RT foot/ankle TECHNIQUE: Imaging protocol: Radiologic exam of the right foot. Views: 3 or more views. COMPARISON: US soft tissue/extremity [id number] 09/14/2018 3:56 PM FINDINGS: Bones/joints: No evidence of acute fracture or subluxation. Tarsometatarsal alignment is maintained. Plantar calcaneal spur and Achilles enthesophyte. If there is concern for plantar fascial or Achilles tendon pathology, follow-up outpatient MRI may be helpful. Soft tissues: Soft tissue edema overlying the lateral malleolus. XR/XR foot RT min 3V* [id number] IMPRESSION: 1. No evidence of acute fracture or subluxation.
--- NOTE | 2023-11-30 15:21 | XRR_ITS ---
PROCEDURE INFORMATION: Exam: XR Right Ankle Exam date and time: 11/30/2023 3:44 PM Age: 38 years old Clinical indication: Injury or trauma; Other: Twisted RT foot/ankle TECHNIQUE: Imaging protocol: Radiologic exam of the right ankle. Views: 3 or more views. COMPARISON: CR XR foot RT min 3V* [id number] 11/30/2023 3:41 PM FINDINGS: Bones/joints: Ankle mortise is intact without evidence of acute fracture or subluxation. Soft tissues: Prominent soft tissue edema overlying the lateral malleolus. XR/XR ankle RT min 3V* [id number] IMPRESSION: 1. Soft tissue edema without evidence of acute fracture or subluxation.
[2023-11-30 15:32] VITALS: BP 128/76; PULSE 76; RESP 16; TEMP 36.9; O2SAT 99; BMI 33.6
--- NOTE | 2023-11-30 16:01 | ED_ITS ---
HPI - Extremity Problem General: Chief complaint: Extremity Injury, Lower Stated complaint: right ankle injury Time Seen by Provider: 11/30/23 15:40 Source: patient Mode of arrival: ambulatory Limitations: no limitations History of Present Illness: 38-year-old female states that she socrates ed in a hole and twisted her right ankle she been having right lateral ankle pain since the event. She states the pain is sharp in nature rates it a 5 out of 10 has not been able to bear any weight she does have swelling to the right lateral ankle she denies hitting her head denies any other injuries Associated symptoms: Deny chest pain, fever(s) or rash Review of Systems Const: Denies: fever(s), chills, body aches or change in appetite ENMT: Denies: throat pain or dental pain Card: Denies: chest pain Resp: Denies: dyspnea GI: Denies: abdominal pain, nausea, vomiting or diarrhea Musc: Reports: extremity pain; Denies: neck pain or back pain Skin/Breast: Denies: rash Neuro: Denies: headache(s) [facility] PFSH: Medical History ASCUS with positive high risk HPV cervical Surgical History History of anterior colporrhaphy (~04/21/23) Anterior and posterior colporrhaphy augmented with allograft performed by Dr. Brown at [facility] for cystocele and rectocele H/O bilateral salpingectomy (~04/02/22) LAPAROSCOPIC-- Dr. Brown S/P cholecystectomy 2018, hernia repair done at the same time of gallbladder removal Family History Grandmother Thyroid disease paternal Denies family history of Colon cancer Ovarian cancer Diabetes Clotting disorder Heart disease Hyperlipidemia Breast cancer Anesthesia complication Bleeding disorder Hypertension Uterine cancer Stroke Social History Smoking and tobacco/nicotine status: former use of tobacco/nicotine Substance/Drug Use: current Substance/Drug use frequency: daily Other substance/drug use details: states that she has a medical card Physical Exam Const: COMMON NORMALS: no acute distress HENMT: COMMON NORMALS: normocephalic and atraumatic HEAD & SCALP: normocephalic and atraumatic Neck/C-Spine: COMMON NORMALS: full ROM and supple Chest: COMMONS NORMALS: normal inspection of the chest Resp: COMMON NORMALS: normal respiratory effort Cardio: COMMON NORMALS: regular rate RATE: regular rate Extremity: COMMON NORMALS: full ROM NARRATIVE EXTREMITY EXAM: Tenderness along swelling to right lateral ankle no obvious deformities. Neuro: COMMON NORMALS: moves all extremities and no focal motor deficits Psych: COMMON NORMALS: mental status grossly normal, Normal thought process present and cooperative THOUGHT PROCESS: Normal thought process present Skin: COMMON NORMALS: no rashes or lesions noted and no wounds GENERAL SKIN EXAM: no rashes or lesions noted Course Vital Signs: Vital signs: Vital Signs Temperature 98.5 F 11/30/23 15:32 Pulse Rate 76 11/30/23 15:32 Respiratory Rate 16 11/30/23 15:32 Blood Pressure 128/76 11/30/23 15:32 Pulse Oximetry 99 11/30/23 15:32 Oxygen Delivery Me thod Room Air 11/30/23 15:32 MDM - Extremity (Nontraumatic) Medical Decision Making Patient presents here with an ankle sprain x-rays here show no fracture she is quite swollen we will place her in a splint she is to be nonweightbearing we will get her follow-up with podiatry she return if worsening. Medical Records I reviewed the patient's medical records. XR interpretation done by ED provider, pending radiology final review Discharge Plan Discharge Patient Disposition: Home Clinical Impression: Ankle sprain and strain Condition: Stable Prescriptions: No Action No Known Home Medications Discharge Orders: Discharge ED (Routine); Ordered 11/30/23 Ordered By: Noel Butts Referrals: Jumana Aguero FNP [Primary Care Provider] - 1-3 days Discharge Diet: Advance as tolerated Discharge Activity: Resume usual activity and Increase activity as tolerated Patient Instructions: Ankle Sprain (ED) Coding Level of Care Code ED [employer] Intern for Wendie French
[2023-11-30] MEDS: HYDROcodone-acetaminophen 5-325 mg Tablet 1 TAB PO (16:17)
--- NOTE | 2023-12-01 15:17 | PC.SOCIAL ---
Ortho Referral Referral to clinic at this time. Clinic to contact patient with appt date/time.
== END 2023-11-30 16:24 | disposition home or self-care (01) ==
PROVIDERS: Emergency Provider Emergency Medicine; PCP Nurse Practitioner Family
DX: S93.401A Sprain of unspecified ligament of right ankle, initial encounter (principal); S96.911A Strain of unspecified muscle and tendon at ankle and foot level, right foot, initial encounter; Z87.891 Personal history of nicotine dependence; W18.42XA Slipping, tripping and stumbling without falling due to stepping into hole or opening, initial encounter
CPT/HCPCS: 29515; 73610; 73630; 99283; E0114

== ENCOUNTER → 2023-12-08 11:35 | Outpatient (BNVA) | payer MEDICAID, SELFPAY | PROVIDERS: PCP Nurse Practitioner Family; Visit Provider Podiatrist Foot & Ankle Surgery | DX: S99.911A Unspecified injury of right ankle, initial encounter; W18.42XA Slipping, tripping and stumbling without falling due to stepping into hole or opening, initial encounter; R21 Rash and other nonspecific skin eruption | CPT/HCPCS: 73610 ==

== ENCOUNTER → 2025-03-22 08:59 | Outpatient (BNVA) | payer MEDICAID, SELFPAY | PROVIDERS: PCP Nurse Practitioner Family; Visit Provider Nurse Practitioner Women's Health | DX: Z01.419 Encounter for gynecological examination (general) (routine) without abnormal findings (principal); Z11.3 Encounter for screening for infections with a predominantly sexual mode of transmission | CPT/HCPCS: 86592; 86705; 86706; 86709; 86803; 87340; 87806 ==